=== PATIENT | male | born 1980 | race Caucasian/White ===

== ENCOUNTER 2024-05-03 03:38 | Emergency (ER) | payer OTHER, SELFPAY ==
--- NOTE | ~2024-05-03 | XR_ITS ---
PA, oblique, and lateral views of the left fifth finger CLINICAL HISTORY: Avulsion FINDINGS: There is transverse fracture the distal tuft of the fifth distal phalanx with overlying pro bable laceration in this region. No other osseous or articular abnormality seen. No other soft tissue abnormality seen. IMPRESSION: Transverse fracture through the distal tuft of the fifth distal phalanx with associated laceration th is region. Reviewed, dictated and finalized at location M. AID IMPRESSION: Transverse fracture through the distal tuft of the fifth distal phalanx with as sociated laceration this region.
[2024-05-03 03:40] VITALS: BP 110/59; PULSE 71; RESP 18; TEMP 36.7; O2SAT 98
[2024-05-03] MEDS: HYDROcodone/acetaminophen (*CRX) 5-325 MG TABLET 1 TAB PO ×2 (04:56→07:17)
[2024-05-03 06:28] VITALS: BP 142/85; PULSE 70; RESP 16; TEMP 36.7; O2SAT 100
--- NOTE | 2024-05-03 07:06 | ED_ITS ---
HPI - General Adult General Chief complaint: Extremity Injury, Upper Stated complaint: L hand 5th digit caught in a motor belt Time Seen by Provider: 05/03/24 05:53 History of Present Illness HPI narrative: 43-year-old male presenting to the emergency department for evaluation for laceration to his left distal 5th finger. Patient was working on a machine and got his finger caught patient's finger was lacerated across the distal aspect of his left 5th finger resulting in a partial amputation. patient's tetanus is not up-to-date. Related Data Allergies Allergy/AdvReac Type Severity Reaction Status Date / Time No Known Allergies Allergy Verified 05/07/23 08:32 Review of Systems Review of Systems: All systems reviewed & are unremarkable except as noted in HPI and below PMFSH Family History Family History Father Family history of thyroid disease Hypertension Malignant neoplasm of prostate Mother Hypertension Sibling Patient's sister is in good health Patient's brother is in good health Grandparent Malignant neoplasm of prostate Family history of malignant neoplasm of bone Family history of malignant neoplasm of breast Acute myocardial infarction Social History Social History Smoking packs per day: 1 Smoking cigarettes per day: 20.0 Years smoked: 10 Smoking pack-years: 10.00 Smoking status: Current every day smoker Tobacco type: cigarettes Second hand tobacco smoke exposure: No Alcohol intake: current Exam Narrative: APPEARANCE: Well appearing, no pain, no distress, well-nourished. HEAD: normocephalic, atraumatic. EYES: PERRLA/EOMI, conjunctivae clear. NOSE: Normal no drainage EARS:TMS clear with good light reflex. THROAT: Pharynx clear, no exudate. NECK: Supple. No adenopathy, no masses. RESPIRATORY: Airway patent, respirations nonlabored. Clear to auscultation chano aterally, no rales, rhonchi, wheezing. CARDIOVASCULAR: Regular rate and rhythm without murmurs rubs or gallops. ABDOMINAL: Soft, nontender, nondistended, normal bowel sounds MUSCULOSKELETAL: laceration through the distal left 5th finger resulting in a partial amputation NEURO: Alert. Cranial nerves II through XII intact. grossly intact Course Vital Signs Vital signs: Vital Signs Temperature 98.1 F 05/03/24 03:40 Pulse Rate 71 05/03/24 03:40 Respiratory Rate 18 05/03/24 03:40 Blood Pressure 110/59 L 05/03/24 03:40 Pulse Oximetry 98 05/03/24 03:40 Oxygen Delivery Room Air 05/03/24 03:40 Temperature 98.1 F 05/03/24 06:28 Pulse Rate 71 05/03/24 09:50 Respiratory Rate 18 05/03/24 09:50 Blood Pressure 151/92 H 05/03/24 09:50 Pulse Oximetry 100 05/03/24 09:50 Oxygen Delivery Room Air 05/03/24 03:40 Medical Decision Making MDM Narrative Medical decision making narrative: 43-year-old male presenting to the emergency department for evaluation for finger injury. Patient does have a partial amputation of the distal aspect of his left 5th finger. Plastic surgery was consulted and patient's finger was repaired in the emergency department. Patient is being started on antibiotics. Patient will have close follow-up with Plastic surgery. Differential Diagnosis Differential Diagnosis: Finger fracture, finger laceration. Vital Signs Vital Signs: Vital Signs Temperature 98.1 F 05/03/24 03:40 Pulse Rate 71 05/03/24 03:40 Respiratory Rate 18 05/03/24 03:40 Blood Pressure 110/59 L 05/03/24 03:40 Pulse Oximetry 98 05/03/24 03:40 Oxygen Delivery Room Air 05/03/24 03:40 Temperature 98.1 F 05/03/24 06:28 Pulse Rate 71 05/03/24 09:50 Respiratory Rate 18 05/03/24 09:50 Blood Pressure 151/92 H 05/03/24 09:50 Pulse Oximetry 100 05/03/24 09:50 Oxygen Delivery Room Air 05/03/24 03:40 Imaging Data Radiologist's impression: Impressions Finger X-Ray 05/03/24 06:31 IMPRESSION: Transverse fracture through the distal tuft of the fifth distal phalanx with associated laceration this region. Discharge Plan Discharge Clinical Impression: Finger laceration, Finger fracture Patient Disposition: Home, Self-Care Condition: Stable Instructions: Antibiotic Form, Laceration (ED), Splint Care (ED) Additional Instructions: antibiotics as directed until completed. Wound care as directed. You will need close follow-up with Plastic surgery. Call to schedule follow-up. Prescriptions: New cephalexin 500 mg capsule 500 mg PO Q12H 7 Days Qty: 14 0RF hydrocodone-acetaminophen 5-325 mg tablet 1 tablet PO Q8H PRN (Reason: pain) Qty: 20 0RF No Action citalopram 40 mg tablet 40 mg PO DAILY Qty: 90 2RF scopolamine base [Transderm-Scop] 1 mg over 3 days patch 3 day 1 patch transdermal Q3D PRN (Reason: motion sickness) Qty: 4 0RF Follow-up/Referrals: PHYSICIAN NOT ON STAFF,NONSTAFF [Non-Staff] -
--- NOTE | 2024-05-03 08:01 | PC.NURSE ---
Dr Martin at bedside
--- NOTE | 2024-05-03 08:06 | P.CONS_ITS ---
Assessment and Plan Assessment and plan (1) Fracture of distal phalanx of left little finger: Qualifiers: Encounter type: initial encounter Fracture alignment: displaced Fracture type: open Qualified Code(s): S62.637B - Displaced fracture of distal phalanx of left little finger, initial encounter for open fracture Code(s): S62.637A - Displaced fracture of distal phalanx of left little finger, initial encounter for closed fracture Status: Acute Assessment and Plan: 43yo male with near complete left small finger distal phalanx laceration and distal phalanx fx xray images reviewed and agree with report discussed impression and Dx with patient and option of primary closure and hope that bone heales and soft tissue is viable vs completion amputation. discussed differences in options, expectations, risks. Reviewed procedure, post-op expectations and risks including but not limited to bleeding, infection, injury to tendon/nerve/vessel, decreased hand function, stiffness, RSD, no change or worsening of symptoms. Plan: 1) left small finger lac repaired and splinted 2) dressing instructions reviewed 3) f/u 1 week 4) abx and pain med per ER Procedure Note: Pre-op Dx: left small finger fx laceration Post-op Dx:same Procedure:repair left small finger laceration, nailbed repair. 2cc 1%lido plain for digital block finger soaked in saline, betadine, peroxide for 10 minutes 4-0 chromic repair lateral nail folds and skin 4-0 chromic to repair nailbed utilizing nailplate as bolster and also help maintain fracture reduction telfa, 4x4, ariana, splint and patricia wrap HPI Data of Consult Date/Time: 05/03/24 08:06 Primary Care Provider: UNKNOWN,DOCTOR Consult Narrative Narrative: Wayne Fleming is a 43 year old male employee of [employer] working the operation shift supervisor who got his left small finger caught between engine belt and gear resulting in distal phalanx fracture and laceration through nailplate. He presented to ER and given extent of injury and near complete amputation plastics consulted. [facility] Family History Family History Father Family history of thyroid disease Hypertension Malignant neoplasm of prostate Mother Hypertension Sibling Patient's sister is in good health Patient's brother is in good health Grandparent Malignant neoplasm of prostate Family history of malignant neoplasm of bone Family history of malignant neoplasm of breast Acute myocardial infarction Social History Social History Smoking packs per day: 1 Smoking cigarettes per day: 20.0 Years smoked: 10 Smoking pack-years: 10.00 Smoking status: Current every day smoker Tobacco type: cigarettes Second hand tobacco smoke exposure: No Alcohol intake: current Meds Home Medications and Allergies Home Medications Medication Instructions Recorded Confirmed Type citalopram 40 mg tablet 40 mg PO DAILY #90 tabs 07/22/23 Rx scopolamine base 1 mg over 3 days 1 patch transdermal Q3D PRN motion 12/02/23 Rx transdermal patch (Transderm-Scop) sickness #4 ea cephalexin 500 mg capsule 500 mg PO Q12H 7 days #14 caps 05/03/24 Rx hydrocodone 5 mg-acetaminophen 325 1 tablet PO Q8H PRN pain #20 tabs 05/03/24 Rx mg tablet Allergies Allergy/AdvReac Type Severity Reaction Status Date / Time No Known Allergies Allergy Verified 05/07/23 08:32 Vital Signs Vital Signs - 24 hr 05/03/24 03:40 05/03/24 06:28 Temperature 36.7 C 36.7 C Pulse Rate 71 70 Respiratory Rate 18 16 Blood Pressure 110/59 L 142/85 H Pulse Oximetry 98 100 Oxygen Delivery Room Air Exam Narrative: Gen: grease covered soiled hands. left small finger with near full thickness transverse laceration through middle nailplate and small residual soft tissue bridge volarly. ROM: fds/fdp/edc appear intact but limited Vascular: tip appears perfused but difficulty to assess given amount of grease soilage. possibly slightly dusky Sensation: Intact to light touch pt pt distal to lac
[2024-05-03] MEDS: TETANUS,DIPHTHERIA,AC PERTUSSIS ADULT (0.5 ML) BOOSTRIX IM (08:24)
[2024-05-03] MEDS: CEPHALEXIN 500 MG CAPSULE PO (09:29)
[2024-05-03 09:50] VITALS: BP 151/92; PULSE 71; RESP 18; O2SAT 100
== END 2024-05-03 09:52 | disposition home or self-care (01) ==
PROVIDERS: Emergency Provider Emergency Medicine
DX: S62.637B Displaced fracture of distal phalanx of left little finger, initial encounter for open fracture (principal); Z23 Encounter for immunization; F17.210 Nicotine dependence, cigarettes, uncomplicated; W31.9XXA Contact with unspecified machinery, initial encounter
CPT/HCPCS: 11760; 12001; 29130; 73140; 90471; 90715; 99284; A9270

== ENCOUNTER 2024-05-15 07:09 | Outpatient (CLI) | payer OTHER, SELFPAY ==
[2024-05-15 07:32] LABS: Basophils Absolute Auto 0.1 K/mm3 (0.0-0.1); Basophils Percent Auto 1.3 % (0.2-1.2); Eosinophils Absolute Auto 0.4 K/mm3 (0-0.3); Eosinophils Percent Auto 5.3 % (0-4.4); Hematocrit 37.9 % (42.0-52.0); Hemoglobin 13.5 g/dL (14.0-18.0); Immature Granulocyte Absolute 0.02 K/mm3 (0.00-0.031); Immature Granulocyte Percent A 0.3 % (0-0.5); Lymphocytes Absolute Auto 2.85 K/mm3 (0.9-3.2); Lymphocytes Percent Auto 40.7 % (18.3-44.2); Mean Corpuscular HGB Conc 35.6 g/dl (32-36); Mean Corpuscular Hemoglobin 31.2 pg (26-34); Mean Corpuscular Volume 87.5 fl (80-100); Mean Platelet Volume 9.7 fl (7.4-10.4); Monocytes Absolute Auto 0.5 K/mm3 (0.1-0.6); Monocytes Percent Auto 7.3 % (2.6-8.5); Neutrophils Absolute Auto 3.2 K/mm3 (1.3-6.7); Neutrophils Percent Auto 45.1 % (45.5-73.1); Platelet Count Result 323 k/mm3 (150-375); Red Blood Count 4.33 M/mm3 (4.6-6.20); Red Cell Distribution Width 11.8 % (11.5-14.5)
[2024-05-15 07:55] LABS: Alanine Aminotransferase 44 U/L (6-50); Albumin Level 4.4 g/dL (3.5-5.1); Alkaline Phosphatase 71 U/L (38-126); Anion Gap 7 mmol/L (4-12); Aspartate Amino Transferase 29 U/L (17-59); Bilirubin,Total 0.5 mg/dL (0.2-1.3); Blood Urea Nitrogen 24 mg/dL (9-20); Calcium 9.2 mg/dL (8.4-10.2); Carbon Dioxide 25 mmol/L (22-30); Chloride 105 mmol/L (98-107); Cholesterol 211 mg/dL (0-200); Estimated Glomerular Filt Rate > 60; Glucose 101 mg/dL (65-110); HDL Direct 46 mg/dL; Potassium 3.9 mmol/L (3.4-5.0); Sodium 137 mmol/L (137-145); Triglycerides 170 mg/dL (<150)
[2024-05-15 08:06] LABS: LDL Cholesterol Direct 123 mg/dL
[2024-05-18 05:58] LABS: Testosterone Total 144 ng/dL (250-1100)
[2024-05-18 08:14] LABS: Testosterone Free 29.3 pg/mL (46.0-224.0)
== END 2024-05-15 07:10 | disposition home or self-care (01) ==
LOC: ANHLAB 07:10
PROVIDERS: PCP Internal Medicine; Visit Provider Internal Medicine
DX: E78.5 Hyperlipidemia, unspecified (principal); Z00.00 Encounter for general adult medical examination without abnormal findings; R68.82 Decreased libido
CPT/HCPCS: 36415; 80053; 80061; 84402; 84403; 85025

== ENCOUNTER 2024-06-20 07:52 | Outpatient (CLI) | payer OTHER, SELFPAY ==
--- NOTE | ~2024-06-20 | XR_ITS ---
PA, oblique, and lateral views of the left fifth finger CLINICAL HISTORY: Distal phalanx fracture FINDINGS: There is transverse, minimally displaced fracture the distal tuft of the fifth distal phala nx. Remaining osseous structures are intact. Joint spaces are preserved. There is mild diffuse soft t issue swelling of the fifth digit. IMPRESSION: Mild interval healing of transverse fracture of the distal tuft of the fifth distal phalanx. Surrounding soft tissue swelling. Reviewed, dictated and finalized at location M. L DIE ENGRAVER IMPRESSION: Mild interval healing of transverse fracture of the distal tuft of the fifth di stal phalanx. Surrounding soft tissue swelling.
== END 2024-06-20 07:53 | disposition home or self-care (01) ==
PROVIDERS: PCP Internal Medicine; Visit Provider Plastic Surgery
DX: S62.637D Displaced fracture of distal phalanx of left little finger, subsequent encounter for fracture with routine healing (principal); X58.XXXD Exposure to other specified factors, subsequent encounter
CPT/HCPCS: 73140

== ENCOUNTER 2024-07-21 09:04 | Outpatient (CLI) | payer OTHER, SELFPAY ==
--- NOTE | ~2024-07-21 | MR_ITS ---
EXAMINATION: MR brain/brain stem wo/w con DATE: 07/21/2024 10:29 INDICATION: Testicular hypofunction. TECHNIQUE: Magnetic resonance imaging (MRI) of the brain and brainstem was performed without and with 20 mL MultiHance intravenous contrast. COMPARISON: None. FINDINGS: The pituitary is normal in size with height of 7 mm. There is no intracranial hemorrhage, a cute infarction, or abnormal intracranial mass lesion. The ventricles are normal in size. There are e ffusions of the bilateral petrous apices. There is mucosal thickening in the paranasal sinuses. The o rbits are normal. IMPRESSION: 1. Normal brain. Normal pituitary. Reviewed, dictated and finalized at location A. [facility] [employer]
--- OUTSIDE RECORDS SUMMARY | 2024-07-21 09:24 | XMS_ITS | Clinical Summary ---
Author Organization 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 Gender Identity Not on file Sexual Orientation Not on file Plan of Treatment Health Maintenance Due Date Last Done Comments Hepatitis C Virus (HCV) Screening 1980 TdaP Immunization 1980 Hepatitis B Immunization (1 of 3 - 19+ 3-dose series) 1999 Influenza Immunization (#1) 2024 03/15/2021 SARS-COV-2 Immunization (2023- season) 2024 05/02/2021, 08/12/2020, 07/22/2020 Respiratory Syncytial Virus (RSV) Immunization (Adult) (1 - 1-dose 75+ series) 2055 Meningococcal Immunization (ACWY) Aged Out No longer eligible b ased on patient's age to complete this topic Pneumococcal Immunization Combined Aged Out No longer eligible b ased on patient's age to complete this topic Rotavirus Immunization Aged Out No lo nger eligible based on patient's age to complete this topic
--- OUTSIDE RECORDS SUMMARY | 2024-07-21 09:24 | XMS_ITS | Referral Summary ---
Author Organization [facility] Address [address] [place] [address] Care Team Providers Care Fax Machine Operator Name Role Phone Unavailable Primary Care Provider Unavailabl e Source Comments [facility],non-owned Affiliates and Associated Physician Practices is amultiple site organization consisting of ambulatory clinics and hospital sitesin [place], [place], [place] and [place]. This disclosure is being madepursuant to the Care Everywhere program and may not contain all information available regarding this patient. Last updated 18.[facility] Social History Tobacco Use Types Packs/Day Years Used Date Smoking Tobacco: Never Assessed Sex and Gender Information Value Date Recorded Sex Assigned at Not on file Gender Identity Not on file Sexual Orientation Not on file Plan of Treatment Not on file Procedures Procedure Name Priority Date/Time Associated Diagnosis Comments LIPID PROFILE Routine 09/26/2014 6:54 AM CDT from Last 3 Months or Most Recently Relevant to Health Maintenance Results * (ABNORMAL) LIPID PROFILE (09/26/2014 6:54 AM CDT) Cholesterol Total 184 <200 mg/dL [facility] HDL 48 >40 mg/dL [facility] Comment: ATP III Classification of HDL Cholesterol: ? <40 mg/dL: ??Considered a major risk factor. ? >60 mg/dL: ??Considered a negative risk factor. ? LDL Calculated 115(H) <100 mg/dL [facility] Comment: ATP III Classification of LDL Cholesterol: ?<100 mg/dL: ??Optimal ? 100 - 129 mg/dL: ??Near Optimal/Above Optimal ? 130 - 159 mg/dL: ??Borderline High ? 160 - 189 mg/dL: ??High ?>190 mg/dL: ??Very High ? Triglycerides 103 <150 mg/dL [facility] Comment: ATP III Classification of Triglycerides: ?<150 mg/dL: ??Normal ? 150 - 199 mg/dL: ??Borderline High ? 200 - 400 mg/dL: ??High ?>500 mg/dL: ??Very High Blood specimen (specimen) BLOOD SPECIMEN / Unknown 09/26/2014 6:54 AM CDT 09/26/2014 7:02 AM CDT Karlo Condon DO LAB - CHEMISTRY ORD ERABLES [facility] [address] [phone] from Last 3 Months or Most Recently Relevant to Health Maintenance
--- OUTSIDE RECORDS SUMMARY | 2024-07-21 09:24 | XMS_ITS | Clinical Summary ---
Author Organization [facility] Address [address] [place] [address] Care Team Providers Care Named Account Executive Name Role Phone Unavailable Primary Care Provider Unavailabl e Source Comments [facility],non-owned Affiliates and Associated Physician Practices is amultiple site organization consisting of ambulatory clinics and hospital sitesin [place], [place], [place] and [place]. This disclosure is being madepursuant to the Care Everywhere program and may not contain all information available regarding this patient. Last updated 18.[facility] [employer] Social History Tobacco Use Types Packs/Day Years Used Date Smoking Tobacco: Never Assessed Sex and Gender Information Value Date Recorded Sex Assigned at Not on file Gender Identity Not on file Sexual Orientation Not on file Plan of Treatment Health Maintenance Due Date Last Done Comments HIV SCREENING 1995 HEPATITIS C SCREENING 08/14/1998 DTAP/TDAP/TD VACCINES (1 - Tdap) 1999 HEPATITIS B VACCINE (1 of 3 - 19+ 3-dose series) 1999 LIPID TESTING 09/27/2019 09/26/2014 COVID-19 VACCINE ( - 2023-2 5 season) 2024 INFLUENZA VACCINE (#1) 2024 DEPRESSION SCREENING 06/21/2024 ZOSTER VACCINE (1 of 2) 2030 HIB VACCINE Aged Out No longer eligi ble based on patient's age to complete this topic HPV VACCINE Aged Out No longer eligi ble based on patient's age to complete this topic MENINGOCOCCAL (Group B) VACCINE Aged Out No longer eligible based on patient's age to complete this topic MENINGOCOCCAL VACCINE Aged Out No chante lilly eligible based on patient's age to complete this topic PNEUMOCOCCAL VACCINE Aged Out No long er eligible based on patient's age to complete this topic Procedures Procedure Name Priority Date/Time Associated Diagnosis Comments LIPID PROFILE Routine 09/26/2014 6:54 AM CDT from Last 3 Months or Most Recently Relevant to Health Maintenance Results * (ABNORMAL) LIPID PROFILE (09/26/2014 6:54 AM CDT) Cholesterol Total 184 <200 mg/dL [facility] HDL 48 >40 mg/dL [facility] Comment: ATP III Classification of HDL Cholesterol: ? <40 mg/dL: ??Considered a major risk factor. ? >60 mg/dL: ??Considered a negative risk factor. ? LDL Calculated 115(H) <100 mg/dL [facility] Comment: ATP III Classification of LDL Cholesterol: ?<100 mg/dL: ??Optimal ? 100 - 129 mg/dL: ??Near Optimal/Above Optimal ? 130 - 159 mg/dL: ??Borderline High ? 160 - 189 mg/dL: ??High ?>190 mg/dL: ??Very High ? Triglycerides 103 <150 mg/dL [facility] Comment: ATP III Classification of Triglycerides: ?<150 mg/dL: ??Normal ? 150 - 199 mg/dL: ??Borderline High ? 200 - 400 mg/dL: ??High ?>500 mg/dL: ??Very High Blood specimen (specimen) BLOOD SPECIMEN / Unknown 09/26/2014 6:54 AM CDT 09/26/2014 7:02 AM CDT Karlo Condon DO LAB - CHEMISTRY [place] [address], [facility] [phone] from Last 3 Months or Most Recently Relevant to Health Maintenance
--- OUTSIDE RECORDS SUMMARY | 2024-07-21 09:24 | XMS_ITS | Patient Health Summary ---
Author Organization [facility] Address [address] [place] [address] Care Team Providers Care Manager Relationship Name Role Phone Unavailable Primary Care Provider Unavailabl e Note from [facility],non-owned Affiliates and Associated Physician Practices is amultiple site organization consisting of ambulatory clinics and hospital sitesin [place] and [place]. This disclosure is being madepursuant to the Care Everywhere program and may not contain all information available regarding this patient. Last updated 18.[facility] Social History Tobacco Use Types Packs/Day Years Used Date Smoking Tobacco: Never Assessed Sex and Gender Information Value Date Recorded Sex Assigned at Not on file Gender Identity Not on file Sexual Orientation Not on file Procedures * MUMPS ANTIBODY IGG(Performed 09/26/2014) * RUBELLA ANTIBODY IGG(Performed 09/26/2014) * FOLATE(Performed 09/26/2014) * VITAMIN B12(Performed 09/26/2014) * PROSTATE SPECIFIC ANTIGEN SCREEN(Performed 09/26/2014) * TSH(Performed 09/26/2014) * COMPREHENSIVE METABOLIC PANEL(Performed 09/26/2014) * LIPID PROFILE(Performed 09/26/2014) * CBC W/O DIFFERENTIAL(Performed 09/26/2014) Results * MUMPS ANTIBODY IGG (09/26/2014 6:54 AM CDT) Mumps Virus Antibody IgG 178.0 Immune >10.9 AU/mL [facility] Comment: ?Negative ? <9.0 ?Equivocal ??9.0 - 10.9 ?Positive ?>10.9 A positive result generally indicates past exposure to Mumps virus or previous vaccination. Blood specimen (specimen) BLOOD SPECIMEN / Unknown 09/26/2014 6:54 AM CDT 09/26/2014 7:02 AM CDT Narrative [facility]) - 09/27/2014 1:22 PM CDT Performed at: ??[address] ??[id number] Daily Sales Audit Clerk: Bunny White PhD, Phone: ??[phone] Karlo Condon DO LAB - CHEMISTRY ORD ERABLES [facility]) * RUBELLA ANTIBODY IGG (09/26/2014 6:54 AM CDT) Rubella Antibody IgG Quantitative 2.00 Immune >0.99 index [facility]) Comment: ?Non-immune ? <0.90 ?Equivocal ??0.90 - 0.99 ?Immune ? >0.99 Blood specimen (specimen) BLOOD SPECIMEN / Unknown 09/26/2014 6:54 AM CDT 09/26/2014 7:02 AM CDT Narrative [facility]) - 09/27/2014 6:16 AM CDT Performed at: ??[address] ??[id number] Daily Sales Audit Clerk: Bunny White PhD, Phone: ??[phone] Karlo Condon DO LAB - SEROLOGY MADI PERSON [facility]) * CBC W/O DIFFERENTIAL (09/26/2014 6:54 AM CDT) WBC 6.0 3.5 - 10.5 10? 3 /uL [facility] RBC 4.72 4.30 - 5.70 10? 6 /uL [facility] Hemoglobin 14.8 13.5 - 17.5 g/dL [facility] Hematocrit 42.1 39.0 - 50.0 % [facility] MCV 89.2 81.0 - 97.0 fL [facility] MCH 31.4 28.0 - 34.0 pg [facility] MCHC 35.2 32.0 - 36.0 g/dL [facility] Platelet Count 293 150 - 400 10? 3 /uL [facility] RDW-SD 39.7 36.0 - 50.0 fL [facility] RDW-CV 12.4 11.2 - 14.8 % [facility] MPV 10.4 9.3 - 12.8 fL [facility] Blood specimen (specimen) BLOOD SPECIMEN / Unknown 09/26/2014 6:54 AM CDT 09/26/2014 7:02 AM CDT Karlo Condon DO LAB - HEMATOLOGY OR DERABLES [place] [id number] [address] [phone] * COMPREHENSIVE METABOLIC PANEL (09/26/2014 6:54 AM CDT) BUN 13 7 - 26 mg/dL [facility] Creatinine 0.9 0.6 - 1.2 mg/dL [facility] Sodium 138 136 - 145 mmol/L [facility] Potassium 4.4 3.5 - 4.5 mmol/L [facility] Chloride 103 98 - 107 mmol/L [facility] CO2 25 22 - 29 mmol/L [facility] Glucose 104 70 - 115 mg/dL [facility] Calcium 9.6 8.4 - 10.2 mg/dL [facility] Protein Total 7.2 6.0 - 8.3 g/dL [facility] Albumin 4.2 3.4 - 5.0 g/dL [facility] Bilirubin Total 0.3 0.2 - 1.2 mg/dL [facility] Alkaline Phosphatase 69 40 - 150 Units/L [facility] ALT 22 0 - 55 Units/L [facility] AST 19 5 - 34 Units/L [facility] Anion Gap 14 8 - 18 [facility] BUN/Creatinine Ratio 14 7 - 23 [facility] Osmolality Calculated 272 270 - 300 mOsm/kg [facility] Albumin/Globulin Ratio 1.4 1.1 - 2.3 [facility] eGFR >60 >60 mL/min/1.7 3 m2 [facility] Blood specimen (specimen) BLOOD SPECIMEN / Unknown 09/26/2014 6:54 AM CDT 09/26/2014 7:02 AM CDT [facility] LAB - CHEMISTRY ORD ERABLES [address] [phone] * PROSTATE SPECIFIC ANTIGEN SCREEN (09/26/2014 6:54 AM CDT) PSA Total 0.6 0.0 - 4.0 ng/mL [facility] Blood specimen (specimen) BLOOD SPECIMEN / Unknown 09/26/2014 6:54 AM CDT 09/26/2014 7:02 AM CDT Karlo Mari [facility] LAB - CHEMISTRY ORD ERABLES [address] [phone] * FOLATE (09/26/2014 6:54 AM CDT) Folate 14.0 7.0 - 31.4 ng/mL [facility] Blood specimen (specimen) BLOOD SPECIMEN / Unknown 09/26/2014 6:54 AM CDT 09/26/2014 7:02 AM CDT Karlo Condon DO LAB - CHEMISTRY ORD ERABLES Performing Organization Address [facility]/ZIP Co de Phone Number [address] [phone] * VITAMIN B12 (09/26/2014 6:54 AM CDT) Vitamin B12 489 213 - 816 pg/mL [facility] Blood specimen (specimen) BLOOD SPECIMEN / Unknown 09/26/2014 6:54 AM CDT 09/26/2014 7:02 AM CDT Karlo Condon LAB - CHEMISTRY ORD ERABLES Performing Organization Address [facility] Co de Phone Number [address] [phone] * TSH (09/26/2014 6:54 AM CDT) TSH 0.601 0.350 - 4.940 uIU/mL [facility] Blood specimen (specimen) BLOOD SPECIMEN / Unknown 09/26/2014 6:54 AM CDT 09/26/2014 7:02 AM CDT Karlo Condon DO LAB - CHEMISTRY ORD ERABLES Performing Organization Address [facility] Co de Phone Number [address] [phone] * (ABNORMAL) LIPID PROFILE (09/26/2014 6:54 AM CDT) Cholesterol Total 184 <200 mg/dL [facility] HDL 48 >40 mg/dL [facility] Comment: ATP III Classification of HDL Cholesterol: ? <40 mg/dL: ??Considered a major risk factor. ? >60 mg/dL: ??Considered a negative risk factor. ? LDL Calculated 115(H) <100 mg/dL [facility] Comment: ATP III Classification of LDL Cholesterol: ?<100 mg/dL: ??Optimal ? 100 - 129 mg/dL: ??Near Optimal/Above Optimal ? 130 - 159 mg/dL: ??Borderline High ? 160 - 189 mg/dL: ??High ?>190 mg/dL: ??Very High ? Triglycerides 103 <150 mg/dL [facility] Comment: ATP III Classification of Triglycerides: ?<150 mg/dL: ??Normal ? 150 - 199 mg/dL: ??Borderline High ? 200 - 400 mg/dL: ??High ?>500 mg/dL: ??Very High Blood specimen (specimen) BLOOD SPECIMEN / Unknown 09/26/2014 6:54 AM CDT 09/26/2014 7:02 AM CDT Karlo Condon DO LAB - CHEMISTRY ORD ERABLES Performing Organization Address City/State/[facility] Co de Phone Number [facility] [address] [place] [address], [facility] [phone]
[2024-07-21 09:46] LABS: Iron 88 ug/dL (49-181)
[2024-07-21 09:55] LABS: Percent Iron Saturation 27 % (20-50)
[2024-07-21 10:03] LABS: Free T4 Free Thyroxine 0.85 ng/dL (0.78-2.19)
== END 2024-07-21 09:05 | disposition home or self-care (01) ==
PROVIDERS: PCP Internal Medicine; Visit Provider Internal Medicine
DX: D64.9 Anemia, unspecified (principal); R53.83 Other fatigue; E29.1 Testicular hypofunction
CPT/HCPCS: 36415; 70553; 82728; 83540; 83550; 84439; 84443; A9577

== ENCOUNTER 2024-08-01 08:36 | Outpatient (CLI) | payer OTHER, SELFPAY ==
--- OUTSIDE RECORDS SUMMARY | 2024-08-01 09:13 | XMS_ITS ---
Author Organization [facility] [employer] Address [address] [place] [address] Care Team Providers Care Telecasting Technician Name Role Phone Philly Nguyen Unavailable [phone] Allergies No Known Allergies REASON FOR VISIT New Patient, states he lost his job and his anxiety has been through the roof Medications Medication SIG (Take, Route, Frequency, Duration) Notes Start Date End Date Status hydrOXYzine HCl 10 MG 1 tablet as needed Orally three times a day for 30 days 03/03/2024 Active Citalopram Hydrobromide 20 MG 1 tablet Orally Once a day Active Social History Tobacco Use: Social History Observation Description Date Details (start date - stop date) Former Smoker 07/02/2000 - 07/20/2023 Sex Assigned At : Social History Observation Description Sex Assigned At Male Household Question Answer Notes Marital status: Number of adults in household: 2 Number of children in household: 1 daughter Level of education: finished high school [employer] Sexual History Question Answer Notes Had sex in the past 12 months (vaginal, oral, or anal)? Yes with Women only Tobacco Control (Standard) Question Answer Notes Tobacco use: Former smoker When did you start smoking? 07/02/2000 When did you stop smoking? 07/20/2023 How long has it been since you last smoked? 6-12 months AUDIT-C (Standard) Question Answer Notes Points 4 Interpretation Positive Did you have a drink contain ing alcohol in the past year? Yes How often did you have six o r more drinks on one occasion in the past year? Less than monthly (1 point) How many drinks did you have on a typical day when you were drinking in the past year? 5 or 6 drinks (2 points) How often did you have a dri nk containing alcohol in the past year? Monthly or less (1 point) Problems Problem Type SNOMED Code ICD Code Onset Dates Problem Status W/U Status Risk Notes Problem 746014879 MDD (major depressive disorder), recurrent episode, mild (F33.0) Active confirmed Problem 46433128 ANGELI (generalized anxiety disorder) (F41.1) Active confirmed Problem 87571990 Panic reaction (F41.0) Active confirmed Problem 27999241 Insomnia related to another mental disorder (F51.05) Active confirmed Vital Signs Blood pressure systolic 118 mm Hg 03/03/20 24 Blood pressure diastolic 82 mm Hg 024 Heart Rate 99 /min 03/03/2024 Respiratory Rate 20 /min 03/03/2024 Height 72 in 03/03/2024 Weight 194.2 lbs 03/03/2024 BMI 26.34 kg/m2 03/03/2024 Height-cm 182.88 cm 03/03/2024 Weight-kg 88.09 kg 03/03/2024 Encounters Encounter Location Date Provider Diagnosis [facility] [address] [address] 03/03/2024 Philly Nguyen MDD (major depressive disorder), recurrent episode, mild F33.0 ; ANGELI (generalized anxiety disorder) F41.1 ; Panic reaction F41.0 and Insomnia related to another mental disorder F51.05 Assessments Encounter Date Diagnosis (ICD Code) Assessment Notes Treatment Notes Treatment Clinical Notes Section Notes 03/03/2024 MDD (major depressive disorder), recurrent episode, mild (ICD-10 - F33.0) Preventing Depression From Coming Back: Care Instructions material was published, Learning About Depression material was published, Learning About Depression Screening material was published, Learning About How to Get Help During a Mental Health Crisis material was published, Depression Treatment: Care Instructions material was published major depression- Celexa 20 mg daily PCP prescribed anxiety- Discuss and educated on Vistaril 10 mg three times a day as needed panic attacks - Vistaril 10 mg three times a day as needed Insomnia related to anxiety - Melatonin 3 mg OTC PRN Recommend decrease/stop cannabis use as it can negatively impact mood, motivation, anxiety, sleep, focus/concentratio n/memory (vigilance, elasticity, processing and attention); can also contribute to development of psychosis. Cannabis/marijuana information: http_s://estefanía.nih. gov/publications/d rugfacts/cannabis- marijuana http_s://www.[employer]/cannabi i-ucr-rjkfnyfs-mar ijuana-adhd/ http_s://www.toñito. org/Dkcpq-Ahdjfr-S llness/Mental-Heal th-Conditions http_s://psychHotelcloud.com/depression /vft-orwoenjfx-qmy pzkyb-gy-cpirgsrxi n#treatments http__s://www.nimh .nih.gov/health/to pics/mental-health -medications http__s://www.toñito .org/About-Mental- Illness/Treatments /Ochmxa-Vvmakp-Qmk ications educated on all medications, benefits, side effects and risk, and educated on depression, anxiety, and ADHD, mood d/o and educated on compliance of medications, metabolic and movement d/o education appointment's, continue therapy discussion with patient about course of treatment and patient instructions. education on serotonin syndrome Discussed and educated pt regarding benzodiazepines are generally not intended for prolonged use and that use can cause tolerance, dependence, depression, and associated memory issues including dementias (this list is not exhaustive). Benzodiazepine use is generally not recommended concurrently with pain medications and/or other controlled substances educated on all medications, benefits, side effects and risk, and educated on depression, anxiety, and ADHD, mood d/o and educated on compliance of medications, metabolic and movement d/o education appointment is, continue therapy discussion with patient about course of treatment and patient instructions. education on serotonin syndrome SSRI/SNRI side effects discussed including but not limited to, gastric upset, nausea, vomiting, diarrhea and/or constipation, weight changes, sexual side effects including loss of libido, increased suicidal thoughts/behaviors in children and young adults, and serotonin syndrome. Second generation antipsychotics (SGAs) have metabolic syndrome issues with weight gain, increase in prolactin, increased waist circumference, increased lipids, and increased glucose. Thus routine monitoring of weight, metabolic labs, etc. is indicated. A general rank ordering of antipsychotics that have the greatest to the least risk of metabolic effects is olanzapine, quetiapine, risperidone, ziprasidone, and aripiprazole. However, weight gain can occur with all of these drugs and considerable variability exists among patients receiving the same drug regarding the risk of metabolic effects. Anti-psychotic agents not only increase the risk of metabolic disorder, they also increase the risk of CVA, akathisia, and movement disorders including EPS or tardive dyskinesia (more common with first generation antipsychotics) and more. Medication Management and Follow-Up - Plan: - Schedule follow-up appointments every 1-3 months to monitor the patient's response to the medication regimen. - Reinforce the importance of avoiding recreational drug use due to potential neurotoxicity and interactions with prescribed medications. 03/03/2024 ANGELI (generalized anxiety disorder) (ICD-10 - F41.1) Generalized Anxiety Disorder: Care Instructions material was published, Learning About Generalized Anxiety Disorder material was published, Learning About Anxiety Disorders material was published major depression- Celexa 20 mg daily PCP prescribed anxiety- Discuss and educated on Vistaril 10 mg three times a day as needed panic attacks - Vistaril 10 mg three times a day as needed Insomnia related to anxiety - Melatonin 3 mg OTC PRN Recommend decrease/stop cannabis use as it can negatively impact mood, motivation, anxiety, sleep, focus/concentratio n/memory (vigilance, elasticity, processing and attention); can also contribute to development of psychosis. Cannabis/marijuana information: http_s://estefanía.nih. gov/publications/d rugfacts/cannabis- marijuana http_s://www.[employer]/cannabi g-wue-lhdhighk-mar ijuana-adhd/ http_s://www.toñito. org/Rrcbw-Bwrgxt-D llness/Mental-Heal th-Conditions http_s://Xangati.com/depression /vqr-jouxamzxo-xti ssgtd-sv-kpvejejyj n#treatments http__s://www.nimh .nih.gov/health/to pics/mental-health -medications http__s://www.toñito .org/About-Mental- Illness/Treatments /Jdhtxn-Smwkcg-Vwo ications educated on all medications, benefits, side effects and risk, and educated on depression, anxiety, and ADHD, mood d/o and educated on compliance of medications, metabolic and movement d/o education appointment's, continue therapy discussion with patient about course of treatment and patient instructions. education on serotonin syndrome Discussed and educated pt regarding benzodiazepines are generally not intended for prolonged use and that use can cause tolerance, dependence, depression, and associated memory issues including dementias (this list is not exhaustive). Benzodiazepine use is generally not recommended concurrently with pain medications and/or other controlled substances educated on all medications, benefits, side effects and risk, and educated on depression, anxiety, and ADHD, mood d/o and educated on compliance of medications, metabolic and movement d/o education appointment is, continue therapy discussion with patient about course of treatment and patient instructions. education on serotonin syndrome SSRI/SNRI side effects discussed including but not limited to, gastric upset, nausea, vomiting, diarrhea and/or constipation, weight changes, sexual side effects including loss of libido, increased suicidal thoughts/behaviors in children and young adults, and serotonin syndrome. Second generation antipsychotics (SGAs) have metabolic syndrome issues with weight gain, increase in prolactin, increased waist circumference, increased lipids, and increased glucose. Thus routine monitoring of weight, metabolic labs, etc. is indicated. A general rank ordering of antipsychotics that have the greatest to the least risk of metabolic effects is olanzapine, quetiapine, risperidone, ziprasidone, and aripiprazole. However, weight gain can occur with all of these drugs and considerable variability exists among patients receiving the same drug regarding the risk of metabolic effects. Anti-psychotic agents not only increase the risk of metabolic disorder, they also increase the risk of CVA, akathisia, and movement disorders including EPS or tardive dyskinesia (more common with first generation antipsychotics) and more. Medication Management and Follow-Up - Plan: - Schedule follow-up appointments every 1-3 months to monitor the patient's response to the medication regimen. - Reinforce the importance of avoiding recreational drug use due to potential neurotoxicity and interactions with prescribed medications. 03/03/2024 Panic reaction (ICD-10 - F41.0) Panic Attacks: Care Instructions material was published major depression- Celexa 20 mg daily PCP prescribed anxiety- Discuss and educated on Vistaril 10 mg three times a day as needed panic attacks - Vistaril 10 mg three times a day as needed Insomnia related to anxiety - Melatonin 3 mg OTC PRN Recommend decrease/stop cannabis use as it can negatively impact mood, motivation, anxiety, sleep, focus/concentratio n/memory (vigilance, elasticity, processing and attention); can also contribute to development of psychosis. Cannabis/marijuana information: http_s://estefanía.nih. gov/publications/d rugfacts/cannabis- marijuana http_s://www.[employer]/cannabi e-uub-oxpvcylx-mar ijuana-adhd/ http_s://www.toñito. org/Wdcsd-Ehetwi-S llness/Mental-Heal th-Conditions http_s://psychHotelcloud.com/depression /caw-izguyyili-eva rjhsk-hf-htkdvsmho n#treatments http__s://www.[facility] .nih.gov/health/to pics/mental-health -medications http__s://www.toñito .org/About-Mental- Illness/Treatments /Dgunur-Rnkfei-Elq ications educated on all medications, benefits, side effects and risk, and educated on depression, anxiety, and ADHD, mood d/o and educated on compliance of medications, metabolic and movement d/o education appointment's, continue therapy discussion with patient about course of treatment and patient instructions. education on serotonin syndrome Discussed and educated pt regarding benzodiazepines are generally not intended for prolonged use and that use can cause tolerance, dependence, depression, and associated memory issues including dementias (this list is not exhaustive). Benzodiazepine use is generally not recommended concurrently with pain medications and/or other controlled substances educated on all medications, benefits, side effects and risk, and educated on depression, anxiety, and ADHD, mood d/o and educated on compliance of medications, metabolic and movement d/o education appointment is, continue therapy discussion with patient about course of treatment and patient instructions. education on serotonin syndrome SSRI/SNRI side effects discussed including but not limited to, gastric upset, nausea, vomiting, diarrhea and/or constipation, weight changes, sexual side effects including loss of libido, increased suicidal thoughts/behaviors in children and young adults, and serotonin syndrome. Second generation antipsychotics (SGAs) have metabolic syndrome issues with weight gain, increase in prolactin, increased waist circumference, increased lipids, and increased glucose. Thus routine monitoring of weight, metabolic labs, etc. is indicated. A general rank ordering of antipsychotics that have the greatest to the least risk of metabolic effects is olanzapine, quetiapine, risperidone, ziprasidone, and aripiprazole. However, weight gain can occur with all of these drugs and considerable variability exists among patients receiving the same drug regarding the risk of metabolic effects. Anti-psychotic agents not only increase the risk of metabolic disorder, they also increase the risk of CVA, akathisia, and movement disorders including EPS or tardive dyskinesia (more common with first generation antipsychotics) and more. Medication Management and Follow-Up - Plan: - Schedule follow-up appointments every 1-3 months to monitor the patient's response to the medication regimen. - Reinforce the importance of avoiding recreational drug use due to potential neurotoxicity and interactions with prescribed medications. 03/03/2024 Insomnia related to another mental disorder (ICD-10 - F51.05) major depression- Celexa 20 mg daily PCP prescribed anxiety- Discuss and educated on Vistaril 10 mg three times a day as needed panic attacks - Vistaril 10 mg three times a day as needed Insomnia related to anxiety - Melatonin 3 mg OTC PRN Recommend decrease/stop cannabis use as it can negatively impact mood, motivation, anxiety, sleep, focus/concentratio n/memory (vigilance, elasticity, processing and attention); can also contribute to development of psychosis. Cannabis/marijuana information: http_s://estefanía.nih. gov/publications/d rugfacts/cannabis- marijuana http_s://www.[employer]/cannabi o-jia-kjbrtbrj-mar ijuana-adhd/ http_s://www.toñito. org/Zhijw-Wsgtrd-I llness/Mental-Heal th-Conditions http_s://Xangati.com/depression /zju-nkyllhcqc-vhv zjpjn-uu-ingdnfhyp n#treatments http__s://www.nimh .nih.gov/health/to pics/mental-health -medications http__s://www.toñito .org/About-Mental- Illness/Treatments /Mghipo-Wscygc-Jyi ications educated on all medications, benefits, side effects and risk, and educated on depression, anxiety, and ADHD, mood d/o and educated on compliance of medications, metabolic and movement d/o education appointment's, continue therapy discussion with patient about course of treatment and patient instructions. education on serotonin syndrome Discussed and educated pt regarding benzodiazepines are generally not intended for prolonged use and that use can cause tolerance, dependence, depression, and associated memory issues including dementias (this list is not exhaustive). Benzodiazepine use is generally not recommended concurrently with pain medications and/or other controlled substances educated on all medications, benefits, side effects and risk, and educated on depression, anxiety, and ADHD, mood d/o and educated on compliance of medications, metabolic and movement d/o education appointment is, continue therapy discussion with patient about course of treatment and patient instructions. education on serotonin syndrome SSRI/SNRI side effects discussed including but not limited to, gastric upset, nausea, vomiting, diarrhea and/or constipation, weight changes, sexual side effects including loss of libido, increased suicidal thoughts/behaviors in children and young adults, and serotonin syndrome. Second generation antipsychotics (SGAs) have metabolic syndrome issues with weight gain, increase in prolactin, increased waist circumference, increased lipids, and increased glucose. Thus routine monitoring of weight, metabolic labs, etc. is indicated. A general rank ordering of antipsychotics that have the greatest to the least risk of metabolic effects is olanzapine, quetiapine, risperidone, ziprasidone, and aripiprazole. However, weight gain can occur with all of these drugs and considerable variability exists among patients receiving the same drug regarding the risk of metabolic effects. Anti-psychotic agents not only increase the risk of metabolic disorder, they also increase the risk of CVA, akathisia, and movement disorders including EPS or tardive dyskinesia (more common with first generation antipsychotics) and more. Medication Management and Follow-Up - Plan: - Schedule follow-up appointments every 1-3 months to monitor the patient's response to the medication regimen. - Reinforce the importance of avoiding recreational drug use due to potential neurotoxicity and interactions with prescribed medications. 03/03/2024 Other Learning About Depression Screening material was printed, Hydroxyzine Oral Tablet (HYDROXYZINE HYDROCHLORIDE - ORAL) material was published major depression- Celexa 20 mg daily PCP prescribed anxiety- Discuss and educated on Vistaril 10 mg three times a day as needed panic attacks - Vistaril 10 mg three times a day as needed Insomnia related to anxiety - Melatonin 3 mg OTC PRN Recommend decrease/stop cannabis use as it can negatively impact mood, motivation, anxiety, sleep, focus/concentratio n/memory (vigilance, elasticity, processing and attention); can also contribute to development of psychosis. Cannabis/marijuana information: http_s://esetfanía.nih. gov/publications/d rugfacts/cannabis- marijuana http_s://www.[employer]per/cannabi x-jbu-tgznpwmt-mar ijuana-adhd/ http_s://www.toñito. org/Braka-Algzeb-N llness/Mental-Heal th-Conditions http_s://psychcent SUNDAYTOZ.com/depression /swo-kbzmuqzvq-vtq bwkqx-jy-koajuzxyl n#treatments http__s://www.nimh .nih.gov/health/to pics/mental-health -medications http__s://www.toñito .org/About-Mental- Illness/Treatments /Tknxue-Itsgmr-Lad ications educated on all medications, benefits, side effects and risk, and educated on depression, anxiety, and ADHD, mood d/o and educated on compliance of medications, metabolic and movement d/o education appointment's, continue therapy discussion with patient about course of treatment and patient instructions. education on serotonin syndrome Discussed and educated pt regarding benzodiazepines are generally not intended for prolonged use and that use can cause tolerance, dependence, depression, and associated memory issues including dementias (this list is not exhaustive). Benzodiazepine use is generally not recommended concurrently with pain medications and/or other controlled substances educated on all medications, benefits, side effects and risk, and educated on depression, anxiety, and ADHD, mood d/o and educated on compliance of medications, metabolic and movement d/o education appointment is, continue therapy discussion with patient about course of treatment and patient instructions. education on serotonin syndrome SSRI/SNRI side effects discussed including but not limited to, gastric upset, nausea, vomiting, diarrhea and/or constipation, weight changes, sexual side effects including loss of libido, increased suicidal thoughts/behaviors in children and young adults, and serotonin syndrome. Second generation antipsychotics (SGAs) have metabolic syndrome issues with weight gain, increase in prolactin, increased waist circumference, increased lipids, and increased glucose. Thus routine monitoring of weight, metabolic labs, etc. is indicated. A general rank ordering of antipsychotics that have the greatest to the least risk of metabolic effects is olanzapine, quetiapine, risperidone, ziprasidone, and aripiprazole. However, weight gain can occur with all of these drugs and considerable variability exists among patients receiving the same drug regarding the risk of metabolic effects. Anti-psychotic agents not only increase the risk of metabolic disorder, they also increase the risk of CVA, akathisia, and movement disorders including EPS or tardive dyskinesia (more common with first generation antipsychotics) and more. Medication Management and Follow-Up - Plan: - Schedule follow-up appointments every 1-3 months to monitor the patient's response to the medication regimen. - Reinforce the importance of avoiding recreational drug use due to potential neurotoxicity and interactions with prescribed medications. Plan Of Treatment Medication Medication Name Sig Start Date Stop Date Notes hydrOXYzine HCl 10 MG 1 tablet as needed Orally three times a day for 30 days 03/03/2024 Treatment Notes Assessment Notes MDD (major depressive disord er), recurrent episode, mild Preventing Depression From Coming Back: Care Instructions material was published, Learning About Depression material was published, Learning About Depression Screening material was published, Learning About How to Get Help During a Mental Health Crisis material was published, Depression Treatment: Care Instructions material was published ANGELI (generalized anxiety disorder) Gener alized Anxiety Disorder: Care Instructions material was published, Learning About Generalized Anxiety Disorder material was published, Learning About Anxiety Disorders material was published Panic reaction Panic Attacks: Care Instructions material was published Other Learning About Depre ssion Screening material was printed, Hydroxyzine Oral Tablet (HYDROXYZINE HYDROCHLORIDE - ORAL) material was published Pending Test Test Name Order Date UDT 03/03/2024 Next Appt Details Follow Up: 4 Weeks, Reason: f/u Vistaril Progress Notes * NAI, Wayne DykesDOB:[birth year] (43 yo M)Acc No.[id number]:03/03/2024 Patient: Wayne TAYLOR Provider: LUIS FREY :1980 A ge:43 Y S ex:Male Date:03/03/2024 Address:[address] [place] [address] Subjective: * Chief Complaints: * 1 . New Patient, states he lost his job and his anxiety has been through the roof. * HPI: P ast Psychiatric Hospitalizations: Previous psychiatric hospitalizations P revious Psychiatric Hospitalization Y es, H ow Many Psychiatry Hospitalizations Have You Had in the past? 1 , W hen were you last hospitalized? month and year 0 10/2011, W hat was the cause of your psychiatric hospitalizations? D epression,,Suicidal thoughts. P ast History of Suicidal attempt H ave you ever attempted suicide in the past N o. 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 I wish they had open position and been over [facility], I have apps and interviews set up and I stare off and shake and feel like crawling out skin and gave me an Xanax and helped a little but still anxious I do not what I want just addded stress and mind races and will I do a good job at interview, and I was at other job 9 years and everything new to me, I know all in my head, I am excited and nerves for new positions, I am restless and fidgety and pace around house a lot no appetite weight stable and maybe 5 pound loss and average 5 hours sleep then toss and turn, I think in night, no nightmares or flashbacks, and just random thoughts and worries, no control over things, I feel useless and burdena dn weight on and I have daughter every other weekend and not as much enjoyment she is 14 years old, and a lot stress and I have money saved for emergencies, and mind race waiting for job process, I did not realize how long takes to get a new job, I feel sad and down, and been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
--- OUTSIDE RECORDS SUMMARY | 2024-08-01 09:13 | XMS_ITS ---
Author Organization [facility] As [place] Address [address] [place] [address] Care Team Providers Care Procurement Specialist Name Role Phone Philly Nguyen Unavailable [phone] Allergies No Known Allergies REASON FOR VISIT f/u anxiety and depression and f/u Vistaril Medications Medication SIG (Take, Route, Frequency, Duration) Notes Start Date End Date Status Citalopram Hydrobromide 20 MG 1 tablet Orally Once a day Active hydrOXYzine HCl 10 MG 1 tablet as needed Orally three times a day for 90 days 03/03/2024 Active Social History Tobacco Use: Social History [...] past year? Monthly or less (1 point) Vital Signs Blood pressure systolic 152 mm Hg 04/04/20 24 Blood pressure diastolic 88 mm Hg 024 Heart Rate 83 /min 04/04/2024 Height 72 in 04/04/2024 Weight 203.6 lbs 04/04/2024 BMI 27.61 kg/m2 04/04/2024 Height-cm 182.88 cm 04/04/2024 Weight-kg 92.35 kg 04/04/2024 Encounters Encounter Location Date Provider Diagnosis [facility] [address] [facility] [address] [place] [address] 04/04/2024 Philly Patrick MDD (major depressive disorder), recurrent episode, mild F33.0 ; ANGELI (generalized anxiety disorder) F41.1 ; Panic reaction F41.0 and Insomnia related to another mental disorder F51.05 Assessments Encounter Date Diagnosis (ICD Code) Assessment Notes Treatment Notes Treatment Clinical Notes Section Notes 04/04/2024 MDD (major depressive disorder), recurrent episode, mild [...] psychosis. Cannabis/marijuana information: http_s://estefanía.nih. gov/publications/d rugfacts/cannabis- marijuana http_s://www.Advasense.MyLabYogi.com/cannabi v-pws-kerbqlta-mar ijuana-adhd/ http_s://www.toñito. org/Gduea-Ujjvrw-W llness/Mental-Heal th-Conditions http_s://psychcent Tesora.com/depression /ubs-wvekaoqad-dht clipe-yx-eqgysmvrt n#treatments http__s://www.[facility] .nih.gov/health/to pics/mental-health -medications http__s://www.toñito .org/About-Mental- Illness/Treatments /Uuaama-Swrvde-Vio ications educated on all medications, benefits, side [...] potential neurotoxicity and interactions with prescribed medications. 04/04/2024 ANGELI (generalized anxiety disorder) (ICD-10 - F41.1) [...] psychosis. Cannabis/marijuana information: http_s://estefanía.nih. gov/publications/d rugfacts/cannabis- marijuana http_s://www.ScripsAmerica/cannabi v-yto-vzqcacwv-mar ijuana-adhd/ http_s://www.toñito. org/Sxacf-Qnusoj-I llness/Mental-Heal th-Conditions http_s://psychAnipipo.com/depression /zkm-evuyhgdxx-ftn ymmix-uw-upjadwtyj n#treatments http__s://www.nimh .nih.gov/health/to pics/mental-health -medications http__s://www.toñito .org/About-Mental- Illness/Treatments /Yvbajd-Sjffsv-Uim ications educated on all medications, benefits, side [...] potential neurotoxicity and interactions with prescribed medications. 04/04/2024 Panic reaction (ICD-10 - F41.0) Panic Attacks: [...] psychosis. Cannabis/marijuana information: http_s://estefanía.nih. gov/publications/d rugfacts/cannabis- marijuana http_s://www.Advasense.MyLabYogi.com/cannabi c-igt-djpeygdi-mar ijuana-adhd/ http_s://www.toñito. org/Ujsec-Vlfiuc-U llness/Mental-Heal th-Conditions http_s://psychcent Tesora.com/depression /flz-gmmnybqxj-euu qlxyt-bv-exiqxcbsb n#treatments http__s://www.nimh .nih.gov/health/to pics/mental-health -medications http__s://www.toñito .org/About-Mental- Illness/Treatments /Hguuuz-Dnqqoc-Wml ications educated on all medications, benefits, side [...] potential neurotoxicity and interactions with prescribed medications. 04/04/2024 Insomnia related to another mental disorder (ICD-10 [...] psychosis. Cannabis/marijuana information: http_s://estefanía.nih. gov/publications/d rugfacts/cannabis- marijuana http_s://www.ScripsAmerica/cannabi k-yib-luoxiima-mar ijuana-adhd/ http_s://www.toñito. org/Whmub-Izwwak-V llness/Mental-Heal th-Conditions http_s://YourPOV.TV/depression /rhd-hwwpkedye-tbw fxiup-kz-letoyjejj n#treatments http__s://www.nimh .nih.gov/health/to pics/mental-health -medications http__s://www.toñito .org/About-Mental- Illness/Treatments /Cmmrap-Zjzqak-Vik ications educated on all medications, benefits, side [...] needed Orally three times a day for 90 days 03/03/2024 Treatment Notes Assessment Notes MDD [...] Panic Attacks: Care Instructions material was published Next Appt Details Follow Up: 3 Months, Reason: f/u Vistaril Progress Notes * Wayne TRIMBLEDOB:[birth year] (43 yo M)Acc No.[id number]:04/04/2024 Patient: Wayne TAYLOR Provider: LUIS FREY :1980 A ge:43 Y S ex:Male Date:04/04/2024 Address:[address], [place], [place] Subjective: * Chief Complaints: * 1 . f/u anxiety and depression and f/u Vistaril. * HPI: P ast Psychiatric Hospitalizations: Previous [...] attempted suicide in the past N o. Follow up depression, anxiety chronic since last visit reported I got a [facility] in [place] [facility] and I feel wonderful on Vistaril I am less anxious and able to concentrate and focus and less restless and fidgety even before the job, depression is gone, no sad or down, no hopeless or helpless, sleep much better average 8-9 hours, appetite much better increased, motivation and interest much better nit stress or worried now, and Vistaril made a difference, also notice a difference and now PRN with Vistaril, no psychosis no thomas, no SI/HI, no agitation no irritable, I am learning new things at job, denies SI/HI no plan or intent no past attempts, no thoughts harm to self or others, no self cutting or self harm, FH none seen psychiatric 2011 had rxn to rx with suicidal thoughts only a [facility] psychiatric hospital cause feeling numb unsure rx name 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 D epression screening: PHQ-9 L ittle interest or pleasure in doing things N ot at all, F eeling down, depressed, or hopeless N ot at all, T rouble falling or staying asleep, or sleeping too much N ot at all, F eeling tired or having little energy N ot at all, P oor appetite or overeating N ot at all, F eeling bad about yourself or that you are a failure, or have let yourself or your family down N ot at all, T rouble concentrating on things, such as reading the newspaper or watching television N ot at all, M oving or speaking so slowly that other people could have noticed; or the opposite, being so fidgety or restless that you have been moving around a lot more than usual N ot at all, T houghts that you would be better off or of hurting yourself in some way N ot at all, T otal Score 0 , I nterpretation M inimal Depression. I ntervention D epression Screening Findings P ositve, F ollow-Up for Depression M anagement of mental health treatment, S uicide Risk Assessment Performed , A dditional Evaluation for Depression P sychiatric interview and evaluation, N kang of the standardized tool used for adult depression screening:?Patient Health Questionnaire (PHQ-9). D epression Screening: ANGELI-7 (2018 Edition) F eeling nervous, anxious, or on edge?Not at all, N ot being able to stop or control worrying N ot at all, W orrying too much about different things N ot at all, T rouble relaxing N ot at all, B eing so restless that it is hard to sit still N ot at all, B ecoming easily annoyed or irritable N ot at all, F eeling afraid as if something awful might happen N ot at all, T otal ANGELI-7 Score 0 , I f you checked any problems, how difficult have they made it for you to do your work, take care of things at home, or get along with other people? N ot difficult at all, I nterpretation of Total ( 0 to 4) No Anxiety. C [place]-Suicide Severity Rating Scale: Suicide Risk (CSRS-screener) i n the past one month Have you wished you were or wished you could go to sleep and not wake up? N o, i n the past one month Have you actually had any thoughts of killing yourself? N o, H ave you ever done anything, started to do anything, or prepared to do anything to end your life? N o. M anic episode: Manic N o past history of Thomas. S chizophrenia/Schizophreniform/Schizoaffective disorder/Brief reactive psychosis: Psychotic symptoms N o past history of psychosis. P sychotherapy Information: Psychotherapy History C urrently in therapy N o. * ROS: P sychiatric: Delusions d enies. S ee HPI denies, SOB, Chest pain, cough, denies neck joint pain, back- steady gait reported no GI issues GERD, REPORTED no N.V/D APPETITE NORMAL denies- urination issues denies seizures, loss conscious, occasional headaches, no tremors, no abnormal movement d/o reported no depression, no anxiety, safe in relationship, sleep interrupted no A/V hallucination, no delusions, no thomas or hypomania, no SI/HI, no agitation, no fatigue reported reported seasonal allergies and no sore throat- s een [...] deficiency: No, vitamin D deficiency: No. * Social History: T obacco Use: T [...] 4 ,?Interpretation P ositive. H ousehold: H o[place]olina M arital status: m arried, N umber of adults in household: 2 , N umber of children in household: 1 daughter, N umber of siblings: 3 , L evel of education: f [employer], M arital status of the child's parents: m arried, W ith whom does the child live? w ith mom, A ny household tobacco use? N o,?Any household pets? Y es 3 cats. M iscellaneous: O ccupation: Unemployed. Safety issues A re there any firearms in the house? N o. A dvance Care Planning A re you your own decision-maker Y es, D o you have Power of Rendering Equipment Tender for Health or Medical? N o. S ocial History: Matt mercado M arital Status: M arried, N umber of Adults in household: 2 , N umber of Children in Household: 0 , L evel of Education: F [employer]. * Medications: T aking Citalopram Hydrobromide 20 MG Tablet 1 tablet Orally Once a day , Taking hydrOXYzine HCl 10 MG Tablet 1 tablet as needed Orally three times a day , Medication List reviewed and reconciled with the patient * Allergies: N .K.D.A. Objective: * Vitals: B P:152/88mm Hg, HR:83/min, Wt:203.6lbs, Wt-k.35 kg, Ht: 72 in, Ht-cm: 182.88 cm, BMI:27.61Index, Body Surface Area: 2.16. * Examination: P sychiatry: Appearance: w ell-groomed. [...] to another mental disorder - F51.05 major depression- Celexa 20 mg daily PCP [...] to development of psychosis. Cannabis/marijuana information: http_s://estefanía.nih.gov/publications/drugfacts/cannabis-marijuana http_s://www.Symwave.com/iyinhzpq-cgs-olxuawan-marijuana-adhd/ http_s://www.toñito.org/Khsqg-Yogevh-Aunfmao/Mzlwhw-Orqbyy-Pajznxxsum http_s://psychcentral.com/depression/prp-czucrtgpi-yxvkttnr-of-depression#treatm ents http__s://www.[facility].nih.gov/health/topics/kogatf-bqkwnn-hsdssqrwmsf http__s://www.toñito.org/Dxuwx-Ltfrpd-Mlwijux/Treatments/Uoyxcs-Oqcovn-Ragrdlwwdgk educated on all medications, benefits, side effects [...] Treatment: 2. G AD (generalized anxiety disorder) Refill hydrOXYzine HCl Tablet, 10 MG, 1 tablet as needed, Orally, three times a day, 90 days, 270, Refills 0. Notes: Generalized Anxiety Disorder: Care Instructions material was published, Learning About Generalized Anxiety Disorder material was published, Learning About Anxiety Disorders material was published 3. P anic reaction Notes: Panic Attacks: Care Instructions material was published * Procedure Codes: 9 6127 BEHAV ASSMT W/SCORE & DOCD/STAND INSTRUMENT, G2211 VISIT COMPLEXITY INHERENT TO ONGOING CARE RELATED TO A PATIENT'S SINGLE, SERIOUS CONDITION OR A COMPLEX CONDITION * Preventive Medicine: Counseling: B P Management: F IRST HYPERTENSIVE BP READING FOLLOW-UP PLAN: e ducated on healthy b/p 120/80monitor b/p at homerefer to PCP, Urgent care/ERheart healthy diet and exciselimit salt intakelimit soda intake and caffieneincrease waterno b/p rx, R EFERRAL TO ALTERNATIVE / PRIMARY CARE PROVIDER: _ ___. * Follow Up: 3 Months (Reason: f/u Vistaril) * Billing Information: * Visit Code: 65962 OFFICE OUTPATIENT VISIT 25 MINUTES DETAILED HISTORY AND EXAM/MODERATE MEDICAL DECISION MAKING. * Procedure Codes: 23552 BEHAV ASSMT W/SCORE & DOCD/STAND INSTRUMENT. G2211 VISIT COMPLEXITY INHERENT TO ONGOING CARE RELATED TO A PATIENT'S SINGLE, SERIOUS CONDITION OR A COMPLEX CONDITION. 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 History and Physical Notes * HPI (History of Present Illness) Category Sub-Category Detail Notes Category Not es Manic episode Manic No past history of Thomas Schizophrenia/Schizophr eniform/Schizoaffective disorder/Brief reactive psychosis Psychotic symptoms No past history of psychosis Past Psychiatric Hospitalizations Previous psychiatric hospitalizations Previous Psychiatric Hospitalization: Yes Follow up depression, anxiety chronic since last visit reported I got a [facility] in [place] [facility] and I feel wonderful on Vistaril I am less anxious and able to concentrate and focus and less restless and fidgety even before the job, depression is gone, no sad or down, no hopeless or helpless, sleep much better average 8-9 hours, appetite much better increased, motivation and interest much better nit stress or worried now, and Vistaril made a difference, also notice a difference and now PRN with Vistaril, no psychosis no thomas, no SI/HI, no agitation no irritable, I am learning new things at job, denies SI/HI no plan or intent no past attempts, no thoughts harm to self or others, no self cutting or self harm, FH none seen psychiatric 2011 had rxn to rx with suicidal thoughts only and psychiatric hospital cause feeling numb unsure rx name 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 month a nd year: 10/2011 What was the cause of your p sychiatric hospitalizations?: Depression,,Suicidal thoughts Past History of Suicidal attempt Have yo u ever attempted suicide in the past: No Depression screening PHQ-9 Little inte rest or pleasure in doing things: Not at all Feeling down, depressed, or hopeless: No t at all Trouble falling or staying asleep, or sl eeping too much: Not at all Feeling tired or having little energy: N ot at all Poor appetite or overeating: Not at all Feeling bad about yourself o r that you are a failure, or have let yourself or your family down: Not at all Trouble concentrating on thi ngs, such as reading the newspaper or watching television: Not at all Moving or speaking so slowly that other people could have noticed; or the opposite, being so fidgety or restless that you have been moving around a lot more than usual: Not at all Thoughts that you would be b ene off or of hurting yourself in some way: Not at all Total Score: 0 Interpretation: Minimal Depression Intervention Depression Screening Findings: P ositve Follow-Up for Depression: Management of mental health treatment Suicide Risk Assessment Performed: Additional Evaluation for De pression: Psychiatric interview and evaluation Name of the standardized too l used for adult depression screening:: Patient Health Questionnaire (PHQ-9) Depression Screening ANGELI-7 (2018 Edition) Feelin g nervous, anxious, or on edge: Not at all Not being able to stop or control worryi ng: Not at all Worrying too much about different things : Not at all Trouble relaxing: Not at all Being so restless that it is hard to sit still: Not at all Becoming easily annoyed or irritable: No t at all Feeling afraid as if something awful rafael ht happen: Not at all Total ANGELI-7 Score: 0 If you checked any problems, how difficult have they made it for you to do your work, take care of things at home, or get along with other people?: Not difficult at all Interpretation of Total: (0 to 4) No Anx iety Psychotherapy Information Psychotherapy History Currently in therapy: No [place]-Suicide Severity Rating Scale Suicide Risk (CSRS-screener) in the past one month Have you wished you were or wished you could go to sleep and not wake up?: No in the past one month Have y ou actually had any thoughts of killing yourself?: No Have you ever done anything, started to do anything, or prepared to do anything to end your life?: No Examination Category Sub-Category Detail Notes Category [...]
--- OUTSIDE RECORDS SUMMARY | 2024-08-01 09:13 | XMS_ITS | Clinical Summary ---
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
--- OUTSIDE RECORDS SUMMARY | 2024-08-01 09:13 | XMS_ITS | Referral Summary ---
Author Organization [facility] Address [address] [place] [address] Care Team Providers Care Teacher Vocational Training Name Role Phone Unavailable Primary Care Provider Unavailabl e Source Comments [facility],non-owned Affiliates and Associated Physician Practices is amultiple site organization consisting of ambulatory clinics and hospital sitesin [place], [place], [place] and [place]. This disclosure is being madepursuant to the Care Everywhere program and may not contain all information available regarding this patient. Last updated 18.[facility] [employer] Social History Tobacco Use Types Packs/Day Years [...] AM CDT) Cholesterol Total 184 <200 mg/dL [facility] HDL 48 >40 mg/dL [facility] Comment: ATP III Classification of HDL Cholesterol: <40 mg/dL: Considered a major risk factor. >60 mg/dL: Considered a negative risk factor. LDL Calculated 115(H) <100 mg/dL [facility] Comment: ATP III Classification of LDL Cholesterol: <100 mg/dL: Optimal 100 - 129 mg/dL: Near Optimal/Above Optimal 130 - 159 mg/dL: Borderline High 160 - 189 mg/dL: High >190 mg/dL: Very High Triglycerides 103 <150 mg/dL [facility] Comment: ATP III Classification of Triglycerides: <150 mg/dL: Normal 150 - 199 mg/dL: Borderline High 200 - 400 mg/dL: High >500 mg/dL: Very High Blood specimen (specimen) BLOOD SPECIMEN / Unknown 09/26/2014 6:54 AM CDT 09/26/2014 7:02 AM CDT Karlo Condon DO LAB - CHEMISTRY ORD ERABLES [facility] [address] [phone] from Last 3 Months or Most Recently Relevant to Health Maintenance
--- OUTSIDE RECORDS SUMMARY | 2024-08-01 09:13 | XMS_ITS | Patient Health Summary ---
Author Organization [facility] Address [address] [place] [address] Care Team Providers Care Plug Drill Operator Name Role Phone Unavailable Primary Care Provider Unavailabl e Note from [facility],non-owned Affiliates and Associated Physician Practices is amultiple site organization consisting of ambulatory clinics and hospital sitesin [place], [place], [place] and [place]. This disclosure is being madepursuant to the Care Everywhere program and may not contain all information available regarding this patient. Last updated 18.[facility] Social History Tobacco Use Types Packs/Day [...] Virus Antibody IgG 178.0 Immune >10.9 AU/mL [facility] (BEAKER) Comment: Negative <9.0 Equivocal 9.0 - 10.9 Positive >10.9 A positive result generally indicates past exposure to Mumps virus or previous vaccination. Blood specimen (specimen) BLOOD SPECIMEN / Unknown 09/26/2014 6:54 AM CDT 09/26/2014 7:02 AM CDT Narrative [facility] ([place]) - 09/27/2014 1:22 PM CDT Performed at: [address] [place] [address] [id number] [employer]: Bunny White PhD, Phone: [phone] Karlo Condon DO LAB - CHEMISTRY ORD ERABLES Performing Organization Address [facility]/ZIP Co de Phone Number [facility]) * RUBELLA ANTIBODY IGG (09/26/2014 6:54 AM CDT) Pathologist [facility] Rubella Antibody IgG Quantitative 2.00 Immune >0.99 index [facility]) Comment: Non-immune <0.90 Equivocal 0.90 - 0.99 Immune >0.99 Blood specimen (specimen) BLOOD SPECIMEN / Unknown 09/26/2014 6:54 AM CDT 09/26/2014 7:02 AM CDT Narrative [facility]) - 09/27/2014 6:16 AM CDT Performed at: [address] [place] [address] [id number] [employer]: Bunny White PhD, Phone: [phone] Karlo Condon DO LAB - SEROLOGY ORDE RABLES Performing Organization Address [facility]/ZIP Co de Phone Number [facility]) * CBC W/O DIFFERENTIAL (09/26/2014 6:54 AM CDT) Pathologist [facility] WBC 6.0 3.5 - 10.5 10 3/uL [facility] RBC 4.72 4.30 - 5.70 10 6/uL [facility] Hemoglobin 14.8 13.5 - 17.5 g/dL [facility] Hematocrit 42.1 39.0 - 50.0 % [facility] MCV 89.2 81.0 - 97.0 fL [facility] MCH 31.4 28.0 - 34.0 pg [facility] MCHC 35.2 32.0 - 36.0 g/dL [facility] Platelet Count 293 150 - 400 10 3/uL [facility] RDW-SD 39.7 36.0 - 50.0 fL [facility] RDW-CV 12.4 11.2 - 14.8 % [facility] MPV 10.4 9.3 - 12.8 fL [facility] Blood specimen (specimen) BLOOD SPECIMEN / Unknown 09/26/2014 6:54 AM CDT 09/26/2014 7:02 AM CDT Karlo Condon DO LAB - HEMATOLOGY OR DERABLES Performing Organization Address City/State/[facility] Co de Phone Number [facility] [address] [phone] * COMPREHENSIVE METABOLIC PANEL (09/26/2014 6:54 AM CDT) BUN 13 7 - 26 mg/dL [facility] Creatinine 0.9 0.6 - 1.2 mg/dL [facility] Sodium 138 136 - 145 mmol/L [facility] Potassium 4.4 3.5 - 4.5 mmol/L [facility] Chloride 103 98 - 107 mmol/L [facility] CO2 25 22 - 29 mmol/L [facility] Glucose 104 70 - 115 mg/dL [facility] Calcium 9.6 8.4 - 10.2 mg/dL [facility] Protein Total 7.2 6.0 - 8.3 g/dL [facility] Albumin 4.2 3.4 - 5.0 g/dL [facility] Bilirubin Total 0.3 0.2 - 1.2 mg/dL [facility] Alkaline Phosphatase 69 40 - 150 Units/L [facility] ALT 22 0 - 55 Units/L [facility] AST 19 5 - 34 Units/L [facility] Anion Gap 14 8 - 18 [facility] BUN/Creatinine Ratio 14 7 - 23 [facility] Osmolality Calculated 272 270 - 300 mOsm/kg [facility] Albumin/Globulin Ratio 1.4 1.1 - 2.3 [facility] eGFR >60 >60 mL/min/1.7 3 m2 [facility] Blood specimen (specimen) BLOOD SPECIMEN / Unknown 09/26/2014 6:54 AM CDT 09/26/2014 7:02 AM CDT Karlo Condon DO LAB - CHEMISTRY ORD ERABLES [address] [phone] * PROSTATE SPECIFIC ANTIGEN SCREEN (09/26/2014 6:54 AM CDT) PSA Total 0.6 0.0 - 4.0 ng/mL [facility] Blood specimen (specimen) BLOOD SPECIMEN / Unknown 09/26/2014 6:54 AM CDT 09/26/2014 7:02 AM CDT Karlo Condon Retrophin LAB - CHEMISTRY ORD ERABLES Performing Organization Address City/[facility]/ZIP Co de Phone Number [address] [phone] * FOLATE (09/26/2014 6:54 AM CDT) Folate 14.0 7.0 - 31.4 ng/mL [facility] Blood specimen (specimen) BLOOD SPECIMEN / Unknown 09/26/2014 6:54 AM CDT 09/26/2014 7:02 AM CDT Karlo Condon Retrophin LAB - CHEMISTRY ORD ERABLES Performing Organization Address City/[facility]/ZIP Co de Phone Number [address] [phone] * VITAMIN B12 (09/26/2014 6:54 AM CDT) Vitamin B12 489 213 - 816 pg/mL [facility] Blood specimen (specimen) BLOOD SPECIMEN / Unknown 09/26/2014 6:54 AM CDT 09/26/2014 7:02 AM CDT Karlo Condon Retrophin LAB - CHEMISTRY ORD ERABLES [address] [phone] * TSH (09/26/2014 6:54 AM CDT) TSH 0.601 0.350 - 4.940 uIU/mL [facility] Blood specimen (specimen) BLOOD SPECIMEN / Unknown 09/26/2014 6:54 AM CDT 09/26/2014 7:02 AM CDT Karlo Condon LAB - CHEMISTRY ORD ERABLES Performing Organization Address City/[facility]/ZIP Co de Phone Number [address] [phone] * (ABNORMAL) LIPID PROFILE (09/26/2014 6:54 AM CDT) Cholesterol Total 184 <200 mg/dL [facility] HDL 48 >40 mg/dL [facility] Comment: ATP III Classification of HDL Cholesterol: <40 mg/dL: Considered a major risk factor. >60 mg/dL: Considered a negative risk factor. LDL Calculated 115(H) <100 mg/dL [facility] Comment: ATP III Classification of LDL Cholesterol: <100 mg/dL: Optimal 100 - 129 mg/dL: Near Optimal/Above Optimal 130 - 159 mg/dL: Borderline High 160 - 189 mg/dL: High >190 mg/dL: Very High Triglycerides 103 <150 mg/dL [facility] Comment: ATP III Classification of Triglycerides: <150 mg/dL: Normal 150 - 199 mg/dL: Borderline High 200 - 400 mg/dL: High >500 mg/dL: Very High Blood specimen (specimen) BLOOD SPECIMEN / Unknown 09/26/2014 6:54 AM CDT 09/26/2014 7:02 AM CDT Karlo Mari Condon DO LAB - CHEMISTRY ORD ERABLES [address] [phone]
--- OUTSIDE RECORDS SUMMARY | 2024-08-01 09:13 | XMS_ITS | Patient Health Record ---
Author Organization [facility] [employer] Address [address] [facility] [address] [place] [address] Care Team Providers Care Rodeo Clown Name Role Phone Philly Nguyen Unavailable [phone] Allergies No Known Allergies Reason For Referral No Information Medications Medication SIG (Take, Route, Frequency, Duration) [...] Problem Status W/U Status Risk Notes Problem [id number] ANGELI (generalized anxiety disorder) (F41.1) Active confirmed Problem 717788142 MDD (major depressive disorder), recurrent episode, mild (F33.0) Active confirmed Problem [id number] Insomnia related to another mental disorder (F51.05) Active confirmed Problem 85928951 Panic reaction (F41.0) Active confirmed Vital Signs Heart Rate 83 /min 04/04/2024 Respiratory Rate 20 /min 03/03/2024 Height-cm 182.88 cm 04/04/2024 Blood pressure diastolic 88 mm Hg 04/04/2024 Weight-kg 92.35 kg 04/04/2024 Height 72 in 04/04/2024 Blood pressure systolic 152 mm Hg 04/04/2024 Weight 203.6 lbs 04/04/2024 BMI 27.61 kg/m2 04/04/2024 Encounters Encounter Location Date Provider Diagnosis [facility] [employer] [facility] [facility] [address] [address] 03/03/2024 Philly Nguyen MDD (major depressive disorder), recurrent episode, mild F33.0 ; ANGELI (generalized anxiety disorder) F41.1 ; Panic reaction F41.0 and Insomnia related to another mental disorder F51.05 [facility] [employer] [facility] [address] [address] 04/04/2024 Philly Nguyen MDD (major depressive disorder), recurrent episode, mild F33.0 ; ANGELI (generalized anxiety disorder) F41.1 ; Panic reaction F41.0 and Insomnia related to another mental disorder F51.05 Assessments Encounter Date Diagnosis (ICD Code) Assessment Notes Treatment Notes Treatment Clinical Notes Section Notes 03/03/2024 ANGELI (generalized anxiety disorder) (ICD-10 - [...] psychosis. Cannabis/marijuana information: http_s://estefanía.nih. gov/publications/d rugfacts/cannabis- marijuana http_s://www.Tenant Magic/cannabi l-awc-nnrlilwv-mar ijuana-adhd/ http_s://www.toñito. org/Tlhkl-Vpqjgw-J llness/Mental-Heal th-Conditions http_s://psychPlayEnable.com/depression /qtx-igkstqtev-kzc yoclw-tn-ucbnxqsrb n#treatments http__s://www.nimh .nih.gov/health/to pics/mental-health -medications http__s://www.toñito .org/About-Mental- Illness/Treatments /Qolkgm-Smlpko-Zvb ications educated on all medications, benefits, side [...] neurotoxicity and interactions with prescribed medications. 03/03/2024 MDD (major depressive disorder), recurrent episode, [...] psychosis. Cannabis/marijuana information: http_s://estefanía.nih. gov/publications/d rugfacts/cannabis- marijuana http_s://www.[employer]/cannabi b-pde-xadxztuy-mar ijuana-adhd/ http_s://www.toñito. org/Rkqro-Zramif-E llness/Mental-Heal th-Conditions http_s://psychcent Mocha.cn.com/depression /dux-yfmihdxmx-yvf rplvs-rn-opjfynpmy n#treatments http__s://www.nimh .nih.gov/health/to pics/mental-health -medications http__s://www.toñito .org/About-Mental- Illness/Treatments /Danhbt-Sghfsi-Ogd ications educated on all medications, benefits, side [...] neurotoxicity and interactions with prescribed medications. 04/04/2024 MDD (major depressive disorder), recurrent episode, [...] psychosis. Cannabis/marijuana information: http_s://estefanía.nih. gov/publications/d rugfacts/cannabis- marijuana http_s://www.[employer]/cannabi w-mqc-fdxskssv-mar ijuana-adhd/ http_s://www.toñito. org/Tswrx-Vbwqwx-Y llness/Mental-Heal th-Conditions http_s://psychCSL DualComcom/depression /xjp-nvbhfxjpx-tiv yeafr-pz-yjstaqcwq n#treatments http__s://www.nimh .nih.gov/health/to pics/mental-health -medications http__s://www.toñito .org/About-Mental- Illness/Treatments /Czxrkj-Hdbttl-Anc ications educated on all medications, benefits, side [...] psychosis. Cannabis/marijuana information: http_s://estefanía.nih. gov/publications/d rugfacts/cannabis- marijuana http_s://www.[employer] Magic/cannabi h-xul-bnluthgz-mar ijuana-adhd/ http_s://www.toñito. org/Ymcrr-Wpxepk-K llness/Mental-Heal th-Conditions http_s://psychcent Mocha.cn.com/depression /wfo-msgtbkhkz-tyv hpnjp-ql-dmqgpaffz n#treatments http__s://www.nimh .nih.gov/health/to pics/mental-health -medications http__s://www.toñito .org/About-Mental- Illness/Treatments /Nnmsug-Ethjng-Kdh ications educated on all medications, benefits, side [...] psychosis. Cannabis/marijuana information: http_s://estefanía.nih. gov/publications/d rugfacts/cannabis- marijuana http_s://www.[employer] Magic/cannabi w-eav-kactgtiz-mar ijuana-adhd/ http_s://www.toñito. org/Mzsmj-Dbarez-L llness/Mental-Heal th-Conditions http_s://psychPlayEnable.com/depression /gbt-gnltkexjk-ivg eegjz-ql-pvesfminh n#treatments http__s://www.nimh .nih.gov/health/to pics/mental-health -medications http__s://www.toñito .org/About-Mental- Illness/Treatments /Dgypcm-Twerxy-Cvj ications educated on all medications, benefits, side [...] psychosis. Cannabis/marijuana information: http_s://estefanía.nih. gov/publications/d rugfacts/cannabis- marijuana http_s://www.Tenant Magic/cannabi x-xja-iuafvrlr-mar ijuana-adhd/ http_s://www.toñito. org/Fkkhr-Xkrzkl-M llness/Mental-Heal th-Conditions http_s://psychcent Mocha.cn.com/depression /lvu-tmjtbfgpi-gkj nbchx-ba-rzxfjojjj n#treatments http__s://www.nimh .nih.gov/health/to pics/mental-health -medications http__s://www.toñito .org/About-Mental- Illness/Treatments /Nvtgrn-Abcgcx-Njw ications educated on all medications, benefits, side [...] psychosis. Cannabis/marijuana information: http_s://estefanía.nih. gov/publications/d rugfacts/cannabis- marijuana http_s://www.Tenant Magic/cannabi r-ynu-jjatljlv-mar ijuana-adhd/ http_s://www.toñito. org/Tryrk-Wsjytr-W llness/Mental-Heal th-Conditions http_s://psychPlayEnable.com/depression /peb-jrlvghuhp-dzz zyoad-ud-gtotzpjgp n#treatments http__s://www.nimh .nih.gov/health/to pics/mental-health -medications http__s://www.toñito .org/About-Mental- Illness/Treatments /Hyebnz-Yvlryy-Xlu ications educated on all medications, benefits, side [...] psychosis. Cannabis/marijuana information: http_s://estefanía.nih. gov/publications/d rugfacts/cannabis- marijuana http_s://www.Tenant Magic/cannabi w-pie-wirebxoa-mar ijuana-adhd/ http_s://www.toñito. org/Cegfw-Gmyqqr-B llness/Mental-Heal th-Conditions http_s://psychcent Mocha.cn.com/depression /vjg-krvautkks-kuw rqlea-yo-kqmcnbpcb n#treatments http__s://www.nimh .nih.gov/health/to pics/mental-health -medications http__s://www.toñito .org/About-Mental- Illness/Treatments /Kdyiur-Gfhjxi-Egk ications educated on all medications, benefits, side [...] psychosis. Cannabis/marijuana information: http_s://estefanía.nih. gov/publications/d rugfacts/cannabis- marijuana http_s://www.Tenant Magic/cannabi k-ogr-svpptwfp-mar ijuana-adhd/ http_s://www.toñito. org/Gefkr-Arypwl-P llness/Mental-Heal th-Conditions http_s://psychPlayEnable.com/depression /dnu-dneeqpjih-dig tbenv-ie-fgexusxuy n#treatments http__s://www.nimh .nih.gov/health/to pics/mental-health -medications http__s://www.toñito .org/About-Mental- Illness/Treatments /Emfutt-Tgkzqb-Hrl ications educated on all medications, benefits, side [...] interactions with prescribed medications. Plan Of Treatment Pending Test Test Name Order Date UDT 03/03/2024 Insurance Providers Payer Name Payer Address Payer Phone Subscriber Number Group Number Insured Name Patient Relationship to Insured Coverage Start Date Coverage End Date [facility] [address] [place] [phone] [id number] Wayne Fleming Self - patient is the insured Medical (General) History Medical History History ICD Code Past Psychiatric History: Anxiety Disord er abdominal aortic aneurysm: No atrial fibrillation: No chronic fatigue syndrome: No essential tremor: No hyperlipidemia: No hypertension: No Parkinson's disease: No restless leg syndrome: No stroke: No subdural hematoma: No type 1 diabetes mellitus: No type 2 diabetes mellitus: No vitamin B12 deficiency: No vitamin D deficiency: No
--- OUTSIDE RECORDS SUMMARY | 2024-08-01 09:13 | XMS_ITS | Clinical Summary ---
Author Organization [facility] Address [address] [place] [address] Care Team Providers Care Analytics Lead Name Role Phone Unavailable Primary Care Provider Unavailabl e Source Comments [facility],non-owned Affiliates and Associated Physician Practices is amultiple site organization consisting of ambulatory clinics and hospital sitesin [place], [place], [place] and [place]. This disclosure is being madepursuant to the Care Everywhere program and may not contain all information available regarding this patient. Last updated 18.[email or web address] Social History Tobacco Use Types Packs/Day Years [...] AM CDT) Cholesterol Total 184 <200 mg/dL [facility] HDL 48 >40 mg/dL [facility] Comment: ATP III Classification of HDL Cholesterol: <40 mg/dL: Considered a major risk factor. >60 mg/dL: Considered a negative risk factor. LDL Calculated 115(H) <100 mg/dL [facility] Comment: ATP III Classification of LDL Cholesterol: <100 mg/dL: Optimal 100 - 129 mg/dL: Near Optimal/Above Optimal 130 - 159 mg/dL: Borderline High 160 - 189 mg/dL: High >190 mg/dL: Very High Triglycerides 103 <150 mg/dL [facility] Comment: ATP III Classification of Triglycerides: <150 mg/dL: Normal 150 - 199 mg/dL: Borderline High 200 - 400 mg/dL: High >500 mg/dL: Very High Blood specimen (specimen) BLOOD SPECIMEN / Unknown 09/26/2014 6:54 AM CDT 09/26/2014 7:02 AM CDT Karlo Condon DO LAB - CHEMISTRY ORD ERABLES [address] [phone] from Last 3 Months or Most Recently Relevant to Health Maintenance
--- NOTE | 2024-08-17 17:50 | WPDHOMESLEEP ---
Sleep Study - Home Unattended Date of Study: 08/01/24 Ordering Provider: Kaushik Sena DO Interpreting Provider: Julia Valadez MD Home Sleep Study Type: Watch PAT Height: 1.83 m Weight: 95.254 kg Body Mass Index: 28.5 Neck Circumference (inches): 16.5 [place]: 15 Reason for Sleep Study Hypersomnolence Sleep History Wayne Fleming is a 43-year-old man with excessive sleepiness. His medical comorbidities include anxiety, depression, hypertension, and low testosterone. He works night shifts. He is always tired on waking. He is as tired as waking as when he goes to sleep. He has been taking naps for about a year. His notes that sometimes he stops breathing when he sleeps but not always. He has had blood tests which are normal except for low testosterone. He is on replacement therapy for this. He rarely awakens from sleep feeling short of breath. He frequently awakens at night with heartburn, belching or coughing. He constantly snores, and it is always loud enough that others complain about it. He occasionally has difficulty sleeping when he has a cold. He never wakes up gasping for breath at night. He frequently has breathing problems at night observed by others. He occasionally sweats excessively at night. He rarely notices his heart pounding or beating irregularly night. He rarely falls asleep during the day, rarely falls asleep involuntarily, never falls asleep while driving. He does not have loss of muscle tone with strong emotion. He occasionally has daytime difficulties due to excessive sleepiness. He never feels paralyzed on waking or falling asleep. He never has vivid dreamlike scenes upon awakening or falling asleep. He never feels afraid to go to sleep. He does not have nightmares. He rarely remembers his dreams. He occasionally has racing thoughts. He rarely feels sad or depressed. He rarely has anxiety. He occasionally has muscular tension. He frequently notices parts of his body jerking and he frequently kicks at night. He rarely has crawling or aching feelings in his legs. He does not have leg pain during the night. He frequently has morning jaw pain. He constantly grinds his teeth at night. He rarely is bothered by pain during the day. He never is awakened by pain at night. He rarely wakes up feeling stiff in the morning, rarely wakes up with sore achy muscles, rarely wakes up with pain in the neck and spine. He has intense fatigue. Normal bedtime is 11:00 a.m., taking up to an hour to fall asleep but often goes to sleep within 1/2 hour. He wakes between 2 and 4 times during his sleep, and these awakenings last about 20 minutes. While awake, he goes to the bathroom or just reposition some self, tossing and turning. His normal wake time is 8:00 p.m.. He maintains the same schedule on weekends. He estimates getting between 7 and 8 hours of sleep daily. He works night shifts. When his child is at the house he sleeps less so he can spend more time with his daughter. He does not generally take naps. A short nap lasting 10-15 minutes is not refreshing. He is usually drowsy for 3 hours after waking. Habits: Tobacco: quit 20 years ago Caffeine: 4 cups a day Alcohol: none Recreational substances: none PMFSH Past Medical History Medical History (Updated 08/17/24 @ 18:14 by Julia Valadez MD) Esophageal reflux disease Low serum testosterone level Hypertension Depression Family History Family History Father Family history of thyroid disease Hypertension Malignant neoplasm of prostate Mother Hypertension Sibling Patient's sister is in good health Patient's brother is in good health Grandparent Malignant neoplasm of prostate Family history of malignant neoplasm of bone Family history of malignant neoplasm of breast Acute myocardial infarction Social History Social History (Updated 08/17/24 @ 18:09 by Julia Valadez MD) Smoking packs per day: 1 Smoking cigarettes per day: 20.0 Years smoked: 10 Smoking pack-years: 10.00 Smoking status: Former smoker Tobacco type: cigarettes Second hand tobacco smoke exposure: No Smoking end date: 07/05/23 Alcohol intake: current Substance use: former Substance use type: does not use Do You Feel Safe in your Home?: Yes Lack of Transportation: No Lack of Food: Never True Current Housing: I Have Housing Concerned About Future Housing: No Difficulty Paying Gas/Electric Bills: No Difficulty Paying for Meds: No Currently Unemployed: No Education: Trade/Vocational Certificate Difficulty w/ Childcare or Family Care: No Living arrangements: with family Occupation/Education: occupation 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 Gender identity (if verbalized by the patient): Male Medications Home Medications ?Medication ?Instructions ?Recorded ?Confirmed ?Type citalopram 40 mg tablet 40 mg PO DAILY #90 tabs 05/06/24 07/21/24 Rx cephalexin 500 mg capsule 500 mg PO Q12H 05/11/24 07/21/24 History hydroxyzine HCl 10 mg tablet 10 mg PO ONCE PRN 05/11/24 07/21/24 History omeprazole 10 mg capsule,delayed 10 mg PO DAILY 05/11/24 07/21/24 History release losartan 50 mg tablet 50 mg PO DAILY #90 tabs 07/21/24 07/21/24 Rx testosterone cypionate 200 mg/mL 200 mg IM .every two weeks #10 mL 07/21/24 07/21/24 Rx intramuscular oil (Depo-Testosterone) syringe with needle 3 mL 21 gauge #50 ea 08/03/24 Rx x 1 1/2 (BD Luer-Satish Syringe) Sleep Procedure The sleep study was completed using Bell BiosystemsPAT a technically adequate device with seven channels: peripheral arterial tone, actigraphy, body position, snore, respiratory movement, pulse oximetry, sleep staging, and heart rate. Prior to using the device, the patient received verbal and written instructions for its application and was provided with the help desk phone number for additional telephonic instruction with 24-hour availability of qualified personnel to answer questions. Sleep Architecture The total recording time is 8 hrs, 49 min. The total sleep time is 7 hrs, 46 min. Sleep latency is 18 minutes. REM latency is 148 minutes. The patient had 10 episodes of waking. Sleep architecture shows 14.1% deep sleep, 72.2% light sleep, and 13.6% stage REM. The patient spent 81.1% of total sleep time in the supine position. Sleep efficiency was 88%. Respiratory Analysis The overall AHI (pAHI 3%:) is 3.5. The central AHI is 1.0. The AHI was 2.9 in NREM and 7.6 in REM sleep. The AHI was 4.1 in Supine and 0.7 in Non-supine sleep. Percent of Jose Angel Carson respirations is 0.0. Oximetry Data The oxygen desaturation index (KARLEE 4%:) is 0.9. The mean saturation is 96%, and the lowest saturation is 87%. Time spent with saturation < 88% is 0.0 minutes. Snoring Profile Snoring average intensity is 46 dB. The patient snored above 45 decibels for 206.6 minutes, 44.3% of sleep time. Cardiac Profile The average pulse is 84 beats per minute, the lowest pulse is 59 beats per minute, and the highest pulse is 150 beats per minute. The cardiac rhythm analysis in sleep did not show evidence of atrial fibrillation. Assessment and Plan Assessment and Plan (1) Hypersomnolence: Code(s): G47.10 - Hypersomnia, unspecified Status: Acute Assessment and Plan: This home sleep test using WatchPat on 08/01/2024 does not show evidence of sleep disordered breathing. The patient has an apnea-hypopnea index of 3.5 using a 3% criteria, oxygen desaturation index of 0.9, no time spent below 88%. He had loud frequent snoring above 45 decibels for 44.3% of the test. He had a normal sleep latency, overall normal sleep architecture although he had decreased percentage of REM. He had tachycardia up to 150 bpm, normal heart rate in sleep is up to 90 bpm. His sleep questionnaire indicates that he constantly grinds his teeth at night and that he has frequent uncomfortable feelings in his legs with excessive kicking while asleep.. Home sleep tests do not measure grinding teeth or leg movements in sleep. (2) Snoring: Code(s): R06.83 - Snoring Status: Acute Assessment and Plan: He had sustained snoring much of the night. Consider evaluating nasal exam, and recommending nasal steroids, nasal or oral antihistamines, Breathe Right nasal strips and positional therapy with pillows on the chest and back areas to prevent rolling into the supine position during sleep. (3) Restless leg syndrome: Code(s): G25.81 - Restless legs syndrome Status: Acute Assessment and Plan: The patient's sleep questionnaire indicates that he frequently has uncomfortable feelings in his legs, and he kicks excessively at night. This is consistent with restless legs syndrome. He had a recent ferritin, July 21, 2024 his ferritin level is 63.5, close to normal, 75 ng/mL. His iron panel is normal, Fe = 88, TIBC = 329, % saturation 27. H/H 13.5/37.9 on May 15, 2024. There are nonpharmacologic methods to treat limb movements including daily exercise, stretching calf muscles before bed, avoiding excessive amounts of caffeine and alcohol, vitamin B supplementation, magnesium lotion massaged into legs before bed, and use of a weighted blanket. Pharmacologic therapy is very effective for restless legs syndrome and limb movements during sleep. It is possible that his fatigue may be due to excessive arousal at night associated with leg movements. He may not be aware that he is waking during the night. I recommend treating for RLS, and if he is no better, consider in-lab study with a sleep aid, if needed, to get to sleep and stay asleep. This may be difficult as he works night shifts and maintains this same schedule on his off days. (4) Evening shift worker: Status: Acute Assessment and Plan: He may have difficulties in functioning due to shift work. It is not possible to tell from the limited information in his sleep questionnaire. He appears to get enough sleep by hostory. His home sleep test showed a normal sleep latency but decreased amounts of REM, may be due to citalopram, a REM suppressor. Data The data obtained during this sleep study is adequate for interpretation. Certification This sleep study has been reviewed by a board certified sleep medicine physician.
[2024-08-17 18:04] VITALS: BMI 28.5
== END 2024-08-02 11:49 | disposition home or self-care (01) ==
LOC: ANHCSM 08:37
PROVIDERS: PCP Internal Medicine; Visit Provider Internal Medicine
DX: G47.10 Hypersomnia, unspecified (principal); R06.83 Snoring; G25.81 Restless legs syndrome
CPT/HCPCS: 95800

== ENCOUNTER 2024-12-05 07:17 | Outpatient (CLI) | payer OTHER, SELFPAY ==
[2024-12-05 07:50] LABS: Hematocrit 48.6 % (42.0-52.0); Hemoglobin 16.5 g/dL (14.0-18.0)
[2024-12-05 08:40] LABS: Prostate Specific Antigen 0.6 ng/mL (< OR = 4.0)
[2024-12-10 15:08] LABS: Testosterone Free 145.6 pg/mL (35.0-155.0); Testosterone Total 709 ng/dL (250-1100)
== END 2024-12-05 07:18 | disposition home or self-care (01) ==
LOC: ANHLAB 07:19
PROVIDERS: PCP Internal Medicine; Visit Provider Internal Medicine
DX: E29.1 Testicular hypofunction (principal); Z79.890 Hormone replacement therapy
CPT/HCPCS: 36415; 82670; 84153; 84402; 84403; 85014; 85018

== ENCOUNTER 2025-03-28 07:12 | Outpatient (CLI) | payer OTHER, SELFPAY ==
--- OUTSIDE RECORDS SUMMARY | 2025-03-28 07:15 | XMS_ITS | Patient Health Record ---
Author Organization [facility] [employer] Address [facility] [facility] [address] [place] [address] Care Team Providers Care Fund Raiser Name Role Phone Philly Nguyen Unavailable [phone] Allergies No Known Allergies Reason For Referral No Information Medications Medication SIG (Take, Route, Frequency, Duration) Notes Start Date End Date Status Citalopram Hydrobromide 20 MG Tablet 1 tablet Orally Once a day Active hydrOXYzine HCl 10 MG Tablet 1 tablet as needed Orally 3 times a day; Duration: 7 days appointment needed Active Social History Tobacco Use: Social History Observation Description Date Details (start date - stop date) Former Smoker 07/02/2000 - 07/20/2023 Sex Assigned At : Social History Observation Description Sex Assigned At Male Social History Miscellaneous: Social Info Question Answer Notes Advance Care Planning Are you your own decision-maker Yes Do you have Power of [facility] or [facility]? No Safety issues: Are there any firearms in the house? No Sexual History: Social Info Question Answer Notes Sexual History Had sex in the past 12 months (vaginal, oral, or anal)? Yes with Women only Social History Social Info Question Answer Notes Household: Marital Status: Number of Adults in household: 2 Number of Children in Household: 0 Level of Education: Finished High School Household: Social Info Question Answer Notes Household Marital status: Number of adults in household: 2 Number of children in household: 1 daughter Number of siblings: 3 Level of education: finished high school trade s chool Marital status of the child's parents: With whom does the child live? with mom Any household tobacco use? No Any household pets? Yes 3 cats Drug/Alcohol: Social Info Question Answer Notes Drugs Have you used drugs other than those for medical reasons in the past 12 months? Yes Methamphetamine? No Crack? No LSD? No Ecstacy? No Prescription opiates? No Marijuana? Yes Ketamine? No PCP? No Is there a minor (18 years or younger) at risk at home? No Are you still using? No AUDIT-C (Standard) Points 4 Interpretation Positive Did you have a drink contain ing alcohol in the past year? Yes How often did you have six or more drinks on one occasion in the past year? Less than monthly (1 point) How many drinks did you have on a typical day when you were drinking in the past year? 5 or 6 drinks (2 points) How often did you have a drink containing alcohol in the past year? Monthly or less (1 point) Caffeine Intake: 1-2 cups per day Tobacco Use: Social Info Question Answer Notes Tobacco Control (Standard) Tobacco use: Former smoker When did you start smoking? 07/02/2000 When did you stop smoking? 07/20/2023 How long has it been since you last smoked? 6-12 months Additional Details Category Social Info Options Details Miscellaneous: Occupation: Unemployed Drug/Alcohol: Do you smoke marijuana? Adm its, no medical card Do you drink alcohol? 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) Active confirmed Problem Panic reaction (68727596) Panic reaction (F41.0) Active confirmed Vital Signs Heart Rate 83 /min 04/04/2024 Height-cm 182.88 cm 04/04/2024 Blood pressure diastolic 88 mm Hg 04/04/2024 Weight-kg 92.35 kg 04/04/2024 Height 72 in 04/04/2024 Blood pressure systolic 152 mm Hg 04/04/2024 Weight 203.6 lbs 04/04/2024 BMI 27.61 kg/m2 04/04/2024 Encounters Encounter Location Date Provider Diagnosis [facility] [address] [address] 04/04/2024 Philly Thery MDD (major depressive disorder), recurrent episode, mild [...] psychosis. Cannabis/marijuana information: http_s://estefanía.nih. gov/publications/d rugfacts/cannabis- marijuana http_s://www.[employer]/cannabi d-snh-wpuwcenr-mar ijuana-adhd/ http_s://www.toñito. org/Fjnxm-Oxlobk-J llness/Mental-Heal th-Conditions http_s://psychcent KoolSpan.com/depression /wzx-vlwfysrgf-pua rvfwn-fz-kfvxxyeaq n#treatments http__s://www.nimh .nih.gov/health/to pics/mental-health -medications http__s://www.toñito .org/About-Mental- Illness/Treatments /Rgeggt-Snimra-Xoh ications educated on all medications, benefits, side [...] psychosis. Cannabis/marijuana information: http_s://estefanía.nih. gov/publications/d rugfacts/cannabis- marijuana http_s://www.[employer]/cannabi d-htv-yqfclbyj-mar ijuana-adhd/ http_s://www.toñito. org/Qdkyc-Llkzai-V llness/Mental-Heal th-Conditions http_s://psychstreamit.com/depression /nxn-ztnrtbprl-ail oldgt-hy-iwtbfdmxy n#treatments http__s://www.nimh .nih.gov/health/to pics/mental-health -medications http__s://www.toñito .org/About-Mental- Illness/Treatments /Carlrj-Jzhmwp-Vfk ications educated on all medications, benefits, side [...] psychosis. Cannabis/marijuana information: http_s://estefanía.nih. gov/publications/d rugfacts/cannabis- marijuana http_s://www.[employer]/cannabi b-xxz-qastuujv-mar ijuana-adhd/ http_s://www.toñito. org/Xbhvq-Lajsbm-M llness/Mental-Heal th-Conditions http_s://[employer].com/depression /tcd-lxayaprwi-grc caefq-pc-qrdmwgmlg n#treatments http__s://www.nimh .nih.gov/health/to pics/mental-health -medications http__s://www.toñito .org/About-Mental- Illness/Treatments /Mujsef-Toguzk-Eqy ications educated on all medications, benefits, side [...] psychosis. Cannabis/marijuana information: http_s://estefanía.nih. gov/publications/d rugfacts/cannabis- marijuana http_s://www.[employer].P2P[employer]Next/cannabi s-wxb-rvgvkwvm-mar ijuana-adhd/ http_s://www.toñito. org/Bcnhd-Tbmeof-R llness/Mental-Heal th-Conditions http_s://psychstreamit.com/depression /ybu-pofykjubb-bfd ifeuq-fg-qzrzfmzrf n#treatments http__s://www.nim .nih.gov/health/to pics/mental-health -medications http__s://www.toñito .org/About-Mental- Illness/Treatments /Ptdaui-Chywcl-Byl ications educated on all medications, benefits, side [...] Insured Coverage Start Date Coverage End Date [facility] [address] [place] [address] [id number] Wayne Fleming Self - patient is the [...]
--- OUTSIDE RECORDS SUMMARY | 2025-03-28 07:16 | XMS_ITS | Clinical Summary ---
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
[2025-03-28 08:04] LABS: Hematocrit 43.8 % (42.0-52.0); Hemoglobin 14.9 g/dL (14.0-18.0); Immature Granulocyte Percent A 0.3 % (0-0.5); Lymphocytes Absolute Auto 2.93 K/mm3 (0.9-3.2); Mean Corpuscular HGB Conc 34.0 g/dl (32-36); Mean Corpuscular Hemoglobin 30.1 pg (26-34); Mean Corpuscular Volume 88.5 fl (80-100); Nucleated Red Blood Cells Absolute Auto 0.000 K/mm3 (0.0-0.012); Nucleated Red Blood Cells Perc 0.0 % (0.0-0.2); Platelet Count Result 362 k/mm3 (150-375); Red Blood Count 4.95 M/mm3 (4.6-6.20); White Blood Count 7.8 K/mm3 (4.5-10.0)
[2025-03-28 08:16] LABS: Alanine Aminotransferase 23 U/L (6-50); Albumin Level 4.5 g/dL (3.5-5.1); Alkaline Phosphatase 74 U/L (38-126); Anion Gap 5 mmol/L (4-12); Aspartate Amino Transferase 26 U/L (17-59); Bilirubin,Total 0.7 mg/dL (0.2-1.3); Blood Urea Nitrogen 17 mg/dL (9-20); Calcium 9.0 mg/dL (8.4-10.2); Carbon Dioxide 26 mmol/L (22-30); Chloride 103 mmol/L (98-107); Cholesterol 193 mg/dL (0-200); Estimated Glomerular Filt Rate > 60; Glucose 86 mg/dL (65-110); HDL Direct 33 mg/dL; Potassium 4.4 mmol/L (3.4-5.0); Sodium 134 mmol/L (137-145); Total Protein 7.4 g/dL (6.3-8.2); Triglycerides 325 mg/dL (<150)
[2025-03-31 01:07] LABS: Free Testosterone (Direct) 15.6 pg/mL (6.8-21.5)
[2025-04-03 14:08] LABS: Estradiol, Sensitive 19.9 pg/mL (8.0-35.0)
== END 2025-03-28 07:13 | disposition home or self-care (01) ==
LOC: ANHLAB 07:13
PROVIDERS: PCP Internal Medicine; Visit Provider Internal Medicine
DX: Z51.81 Encounter for therapeutic drug level monitoring (principal); I10 Essential (primary) hypertension; E29.1 Testicular hypofunction
CPT/HCPCS: 36415; 80053; 80061; 82670; 84402; 84403; 85025